=== PATIENT | female | born 1935 | race Caucasian/White ===

== ENCOUNTER 2017-03-18 12:04 | Outpatient (CLI) | payer BC | END 2017-03-18 12:05 | disposition critical access hospital (66) | LOC: EMS 12:04 | PROVIDERS: ATTEND Surgery | DX: R07.9 Chest pain, unspecified (principal) | CPT/HCPCS: A0425; A0429 ==

== ENCOUNTER 2017-03-18 12:26 | Inpatient (IN) | payer MEDICARE, BC ==
--- NOTE | 2017-03-18 12:41 | ED Physician Documentation ---
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 It lasted minutes to hours at a time and was associated with nausea and dry heaves as well as sweats. She vacillates when I ask her if she's been short of breath, and eventually says only because of the nausea and dry heaves. She denies pedal edema. She has no history of heart issues, had a negative stress test that was 20 years ago. She does have a history of chronic iron deficiency anemia and prior workups demonstrated gallstones, ventral hernia, retroperitoneal adenopathy, and a pancreatic lesion for which he failed to followup. En route her EKG was notable for sinus tachycardia with lateral ST depression and ST elevation in aVR. She is pain- free now after taking aspirin prior to arrival.) Review of Systems Ten Systems: 10 systems reviewed and negative Constitutional: reports: Fever (ffor years), Fatigue, Sweats Ears: denies: Drainage/discharge Nose: denies: Rhinorrhea / runny nose, Congestion Cardiac: denies: Palpitations, Pedal edema, Calf pain Respiratory: denies: Cough, Hemoptysis, Wheezing GI: denies: Abdominal Swelling, Diarrhea PD PAST MEDICAL HISTORY - Past Medical History Cardiovascular: Hypertension Respiratory: None Neuro: None Endocrine/Autoimmune: Type 2 diabetes, HyPOthyroidism GI: GERD : None Psych: None Musculoskeletal: None - Past Surgical History Past Surgical History: Yes 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 Derm: Skin cancer surgery - Present Medications Home Medications: Ambulatory Orders Medication Instructions Recorded Confirmed Multivitamin [Multi-Vitamin Daily] 1 tab PO DAILY 04/03/13 07/24/16 [place]-3 Fatty Acids/Fish Oil 1 cap PO DAILY 04/03/13 07/24/16 [[place] 3 1,000 mg Softgel] metFORMIN [Glucophage] 1,000 mg PO BIDWM 04/03/13 03/18/17 Aspirin 325 mg PO DAILY 07/25/16 07/25/16 Ferrous Sulfate 325 mg PO DAILY 07/25/16 07/25/16 Omeprazole 20 mg PO DAILY 07/25/16 07/25/16 Simvastatin 20 mg PO QPM 07/25/16 03/18/17 Levothyroxine Sodium 125 mcg PO DAILY 03/18/17 03/18/17 [Levothyroxine Sodium] - Allergies Allergies/Adverse Reactions: Allergies Allergy/AdvReac Type Severity Reaction Status Date / Time Penicillins AdvReac Intermediate Rash Verified 07/24/16 22:31 - Living Situation Living Situation: reports: Other (with daughter) Living Arrangement: reports: At home - Social History Does the pt smoke?: No Smoking Status: Former smoker (quit in 1984) Does the pt drink ETOH?: No Does the pt have substance abuse?: No - Family History Family history: reports: Non contributory - Immunizations Immunizations are current?: No Immunizations: TDAP >10years/unknown - POLST Patient has POLST: No PD ED PE NORMAL - Vitals Vital signs reviewed: Yes - General General: Alert and oriented X 3, No acute distress - HEENT HEENT: PERRL, EOMI - Neck Neck: Supple, no meningeal sign, No bony TTP - Cardiac Cardiac: No murmur, Other (rapid, regular) - Respiratory Respiratory: No respiratory distress, Clear bilaterally - Abdomen Abdomen: Soft, Non tender - Rectal Rectal: Other (dark brown, v guaiac positive, QC pass) - Back Back: No CVA TTP, No spinal TTP - Derm Derm: Normal color, Warm and dry - Extremities Extremities: Other (mild pitting pedal edema) - Neuro Neuro: Alert and oriented X 3, Normal speech - Psych Psych: Normal mood, Normal affect Results - Vitals Vitals: Vital Signs - 24 hr 03/18/17 03/18/17 03/18/17 12:27 12:58 13:03 Temperature 37.5 C Heart Rate 118 H 109 H 96 Respiratory 18 Rate Blood Pressure 125/64 120/62 120/71 O2 Saturation 97 97 97 03/18/17 03/18/17 03/18/17 13:10 13:25 13:33 Temperature Heart Rate 88 86 91 Respiratory 23 22 Rate Blood Pressure 90/43 L 86/48 L 91/46 L O2 Saturation 97 100 97 03/18/17 03/18/17 03/18/17 14:13 14:37 15:27 Temperature Heart Rate 95 95 102 H Respiratory 20 28 H 23 Rate Blood Pressure 100/45 L 102/45 L 98/54 L O2 Saturation 99 100 Oxygen O2 Source Room air - EKG (time done) 1238 Rate: Rate (enter#) (115) Rhythm: Sinus tachycardia (with PVC) [place]: Normal Intervals: Normal FL QRS: Normal Ischemia: Other (Lateral ST depression and KARTHIK in AVR which was present 03/17/13 (last EKG), but is much more pronounced now.) Computer interpretation: Agree with computer - Labs Labs: Laboratory Tests 03/18/17 03/18/17 03/18/17 12:57 12:57 12:57 WBC 13.1 H RBC 2.01 L Hgb 5.8 L* Hct 18.7 L* MCV 93.3 MCH 28.8 MCHC 30.9 L RDW 17.4 H Plt Count Neut # Not Reportable Lymph # Not Reportable [place] # Not Reportable Eos # Not Reportable Baso # Not Reportable Absolute Nucleated RBC Not Reportable Total Counted 100 Band Neuts % (Manual) 1 Metamyelocytes % 1 H Neutrophils # (Manual) 5.9 Lymphocytes # (Manual) 2.9 Monocytes # (Manual) 4.1 H Eosinophils # (Manual) 0.1 Nucleated RBCs Not Reportable Differential Comment MANUAL DIFFERENTIAL Platelet Morphology RARE GIANT PLATELETS RBC Morph Micro Appear 1+ HYPOCHROMASIA PT INR APTT Sodium 136 Potassium 4.1 Chloride 104 Carbon Dioxide 21 Anion Gap 11.0 BUN 23 H Creatinine 1.1 H Estimated GFR (MDRD) 48 L Glucose 121 H Calcium 8.4 L Total Bilirubin 0.8 AST 13 ALT < 10 L Alkaline Phosphatase 67 Total Creatine Kinase 82 CK-MB (CK-2) 10.0 H Troponin I 1.15 H* Total Protein 6.6 L Albumin 3.6 Globulin 3.0 Albumin/Globulin Ratio 1.2 Lipase 21 L Blood Type Antibody Screen Crossmatch IS Only 03/18/17 03/18/17 12:57 14:10 WBC RBC Hgb Hct MCV MCH MCHC RDW Plt Count Neut # Lymph # [place] # Eos # Baso # Absolute Nucleated RBC Total Counted Band Neuts % (Manual) Metamyelocytes % Neutrophils # (Manual) Lymphocytes # (Manual) Monocytes # (Manual) Eosinophils # (Manual) Nucleated RBCs Differential Comment Platelet Morphology RBC Morph Micro Appear PT 12.9 H INR 1.1 APTT 25.9 Sodium Potassium Chloride Carbon Dioxide Anion Gap BUN Creatinine Estimated GFR (MDRD) Glucose Calcium Total Bilirubin AST ALT Alkaline Phosphatase Total Creatine Kinase CK-MB (CK-2) Troponin I Total Protein Albumin Globulin Albumin/Globulin Ratio Lipase Blood Type A POSITIVE Antibody Screen NEGATIVE Crossmatch IS Only See Detail - Rads (name of study) 1v chest Radiology: EMP read contemporaneously (NAD) 1v chest (post line) Radiology: EMP read contemporaneously (R IJ cath in R atrium, will be pulled back 2cm by RN) Ct A/P Radiology: EMP read contemporaneously (Diverticulosis, stable mesenteric mass and lymphadenopathy, stable left adrenal nodule, marie cystic abnormalities of the pancreas, gallstones, right lower lobe nodule and small liver nodule.) Procedures - General procedure General procedure: She was difficult for IV access and needed a second IV, I personally placed a deep 22-gauge IV in the left deep brachial vein using real-time ultrasound guidance for crossmatched draw. - Central Line Central Line Preparation: Consent Obtained (written), Time out completed, Ultrasound used, Sterile prep and drape Central line location: Right IJ Central line type: Triple lumen Central line aftercare: Chlorhexidine disc placed, Secured, Placement confirmed , No pneumothorax, No complications, Bundle checklist complete, Pt tolerated well PD MEDICAL DECISION MAKING - ED course ED course: 81-year-old woman presents with intermittent chest pain for a week it is somewhat atypical and an ischemic EKG, but pain-free on arrival. She was found to be profoundly anemic, this is an acute on chronic anemia, and she is guaiac positive. She was administered a small dose of Lopressor IV for tachycardia, she became mildly hypotensive, around 90/60 and was given 500 of saline with improvement. She had a positive troponin. Case discussed with Dr. Travon Clarke, cardiology at [facility] by phone. She agreed this is a very complicated case because although coronary angiography might be indicated, intervention would be very difficult given the GI bleeding and lack of ability to anticoagulate her. Patient preferred to stay here for transfusions and further workup. We discussed CODE STATUS and she does want to be DO NOT RESUSCITATE if she arrests. I discussed the case with Dr. Parra, hospitalist here who did feel a little hesitant to accept her here, but I had a long discussion with the patient and she understands the pros and cons of transferring she would like to stay here at least for transfusion and to follow her troponins, potentially for endoscopies. She was difficult for IV access and her peripheral IVs all infiltrated place a right IJ central line. - Critical Care Time(min): 55 Time Includes: Direct patient care, Review records, Reassess patient, Document care, Coordinate care, Medical consult Procedures included in critical care time: Peripheral IV Procedures excluded from critical care time: Central IV, EKG Departure - Departure Disposition: 66 [facility] DC/Xfer Clinical Impression: Unstable angina, Acute blood loss anemia GI bleeding Qualifiers: GI bleed type/associated pathology: unspecified gastrointestinal hemorrhage type Qualified Code(s): K92.2 - Gastrointestinal hemorrhage, unspecified Condition: Critical
[2017-03-18] MEDS ORDERED: METOPROLOL 5 MG/5 ML VIAL IVP STA (12:45)
[2017-03-18] MEDS ORDERED: METOPROLOL 5 MG/5 ML VIAL IVP ONE (12:52)
[2017-03-18 13:20] LABS: BASOPHILS % (AUTO) 1.3 %; EOSINOPHILS % (AUTO) 0.4 %; LYMPHOCYTES % (AUTO) 14.5 %; MEAN CORPUSCULAR HEMOGLOBIN 28.8 pg (27.0-31.0); MEAN CORPUSCULAR HGB CONC 30.9 g/dL (32.0-36.0); MEAN CORPUSCULAR VOLUME 93.3 fL (81.0-99.0); MONOCYTES % (AUTO) 33.7 %; NEUTROPHILS % (AUTO) 50.1 %; RED BLOOD COUNT 2.01 10^6/uL (4.20-5.40); RED CELL DISTRIBUTION WIDTH 17.4 % (12.0-15.0); UNCORRECTED WHITE BLOOD COUNT 13.1 x10^3/uL; WHITE BLOOD COUNT 13.1 x10^3/uL (4.8-10.8)
[2017-03-18 13:22] LABS: ALBUMIN/GLOBULIN RATIO 1.2 (1.0-2.2); BILIRUBIN,TOTAL 0.8 mg/dL (0.2-1.0); BUN - BLOOD UREA NITROGEN 23 mg/dL (6-20); CALCIUM 8.4 mg/dL (8.5-10.3); CARBON DIOXIDE - CO2 21 mmol/L (21-32); CHLORIDE 104 mmol/L (101-111); CREATININE 1.1 mg/dL (0.4-1.0); GFR - MDRD 48 (>89); GLUCOSE 121 mg/dL (70-100); LIPASE 21 U/L (22-51); POTASSIUM 4.1 mmol/L (3.5-5.0); SODIUM 136 mmol/L (135-145); TOTAL PROTEIN 6.6 g/dL (6.7-8.2)
[2017-03-18] MEDS ORDERED: SODIUM CHLORIDE 0.9% 500 ML IV ONE ×2 (13:26→15:34)
--- NOTE | 2017-03-18 13:26 | XRAY Preliminary Report ---
Exam: XR Chest 1 View IMPRESSION: Chronic findings. No acute disease. [facility] SITE ID: [id number]
[2017-03-18 13:29] LABS: TROPONIN I 1.15 ng/mL (<0.49)
--- NOTE | 2017-03-18 13:29 | XRAY Report ---
EXAM: CHEST RADIOGRAPHY EXAM DATE: 03/18/2017 01:17 PM. CLINICAL HISTORY: Chest pain. COMPARISON: None. TECHNIQUE: 1 view. FINDINGS: Lungs/Pleura: Mild interstitial prominence. No localized infiltrate, consolidation, effusion, or pneu mothorax. Mediastinum: Within exam limitations, cardiomediastinal contour is normal. The upper lobe vessels not distended. Other: Surgical clips in the neck. Degenerative changes. Calcific periarthritis of right shoulder. IMPRESSION: Chronic findings. No acute disease. [facility] Referring Provider Line: [phone] SITE ID: [id number]
[2017-03-18 13:33] LABS: HCT - HEMATOCRIT 18.7 % (37.0-47.0); HGB - HEMOGLOBIN 5.8 g/dL (12.0-16.0)
[2017-03-18 13:38] LABS: BAND NEUTROPHILS % (MANUAL) 1 %; EOSINOPHILS % (MANUAL) 1 %; LYMPHOCYTES % (MANUAL) 22 %; NEUTROPHILS % (MANUAL) 44 %; TOTAL CELLS COUNTED 100
[2017-03-18 13:40] LABS: NP AUTO DIFFERENTIAL? YES; NP MAN DIFFERENTIAL? NO
[2017-03-18] MEDS ORDERED: PANTOPRAZOLE 40 MG VIAL IVP STA (15:20)
[2017-03-18] MEDS ORDERED: PANTOPRAZOLE 40 MG VIAL ONE (15:25)
[2017-03-18] MEDS ORDERED: ZOLPIDEM 5 MG TABLET PO PRN (15:34)
[2017-03-18] MEDS ORDERED: ONDANSETRON 4 MG/2 ML VIAL IVP PRN (15:34)
[2017-03-18] MEDS ORDERED: oxyCODONE 5 MG TABLET PO PRN ×2 (15:34)
[2017-03-18] MEDS ORDERED: NITROGLYCERIN SL 0.4 MG TABLET SL PRN (15:34)
[2017-03-18] MEDS ORDERED: PROCHLORPERAZINE 10 MG/2 ML VIAL IVP PRN (15:34)
[2017-03-18] MEDS ORDERED: ACETAMINOPHEN 325 MG TABLET PO PRN (15:34)
[2017-03-18 15:40] LABS: INR 1.1 (0.8-1.2); PT - PROTHROMBIN TIME 12.9 secs (9.9-12.6)
[2017-03-18 15:47] LABS: PARTIAL THROMBOPLASTIN TIME 25.9 secs (24.9-33.3)
--- NOTE | 2017-03-18 15:47 | XRAY Preliminary Report ---
Exam: XR Chest for Line Placement IMPRESSION: 1. New right internal jugular line with tip in the proximal right atrium. This can be pulled back 2 c m. 2. Atherosclerosis. [facility] SITE ID: [id number]
--- NOTE | 2017-03-18 15:49 | XRAY Report ---
EXAM: CHEST RADIOGRAPHY EXAM DATE: 03/18/2017 03:34 PM. CLINICAL HISTORY: Post central line. COMPARISON: Chest x-ray 03/18/2017 at 1318. TECHNIQUE: 1 view. FINDINGS: Lungs/Pleura: No focal opacities evident. No pleural effusion. No pneumothorax. Mediastinum: Normal heart size with aortic tortuosity and atherosclerotic calcification. Other: Calcification adjacent to the bilateral greater tuberosities. Status post neck surgery. New ri ght internal jugular line with tip in the proximal right atrium. IMPRESSION: 1. New right internal jugular line with tip in the proximal right atrium. This can be pulled back 2 c m. 2. Atherosclerosis. [facility] Referring Provider Line: [phone] SITE ID: [id number]
--- NOTE | 2017-03-18 16:51 | CT Report ---
EXAM: CT ABDOMEN AND PELVIS EXAM DATE: 03/18/2017 04:19 PM. CLINICAL HISTORY: GI bleeding. Previous pancreas mass. COMPARISONS: 07/25/2016. TECHNIQUE: Routine helical CT imaging was performed through the abdomen and pelvis. IV contrast: 100 cc of Isovue-300. Enteric contrast: No. Reconstructions: Coronal and sagittal. In accordance with CT protocol optimization, one or more of the following dose reduction techniques w ere utilized for this exam: automated exposure control, adjustment of mA and/or KV based on patient s ize, or use of iterative reconstructive technique. FINDINGS: Lung Bases: 6 mm right lower lobe nodule noted. Liver: Indeterminant 8mm low density, central right lobe. Gallbladder/Bile Ducts: Multiple gallstones. No ductal dilatation. Spleen: Normal. Pancreas: Stable septated cystic abnormality in the pancreatic head 1.8 cm across, 11 mm cystic abnor mality at junction of head and body, and 11 mm cystic low density mid body. Adrenal Glands: Stable 16 x 21 mm left adrenal nodule. Normal right adrenal. Kidneys: Normal. No masses or hydronephrosis. Peritoneal Cavity/Bowel: Stable periaortic lymph nodes, 1.5 cm across to the right, 1.4 cm across to the left. Stable mesenteric mass with internal calcification, 1.5 x 1.8 by 3.0 cm. No free fluid or f ree air. No masses or acute inflammatory process. Nonvisualized appendix. Pelvic Organs: Hysterectomy. Bladder unremarkable. Vasculature: No aortic aneurysm. Advanced atherosclerotic calcification and plaquing of the aortoilia c vessels and of the celiac artery and SMA. Bones: No significant abnormality. Other: None. IMPRESSION: 1. Mild diverticulosis without diverticulitis or other acute bowel abnormality. 2. 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 3. Stable left adrenal nodule. 4. Stable cystic abnormalities of the pancreas. 5. Gallstones. 6. Right lower lobe 6 mm nodule, not seen on prior exams. 7. Indeterminate 8 mm low-density, central right lobe of the liver, not seen on prior exams. [facility] Referring Provider Line: [phone] SITE ID: [id number]
[2017-03-18 16:58] LABS: CA 125 4.1 U/mL (0.0-35.0)
[2017-03-18 16:59] LABS: IRON 7 ug/dL (28-170); TOTAL IRON BINDING CAPACITY 382 ug/dL (250-450); TRANSFERRIN 273 mg/dL (192-382)
[2017-03-18 17:06] LABS: FERRITIN 11.3 ng/mL (11.0-306.8)
[2017-03-18] MEDS ORDERED: IOPAMIDOL-300 100 ML VIAL IVP ONE (17:46)
--- NOTE | 2017-03-18 19:04 | HISTORY & PHYSICAL EXAMINATION ---
Chief Complaint - Chief Complaint Chief Complaint: chest pain History of Present Illness - Admitted From Admitted From:: emergency department - History Obtained From Records Reviewed: yes History obtained from: patient Exam Limitations: none - History of Present Illness HPI Comment/Other: Patient is a very pleasant 81-year-old female with a past medical history significant for diabetes, hypertension, hypothyroidism, history of ischemic bowel with colon resection and recent finding of mesenteric mass for which patient has not followed up due to feeling well who presented to the emergency department with a chief complaint of chest pain. The patient states that she has been having off-and-on chest pain for the past several weeks. She states that the pain is substernal radiates up into the left side of her chest and then up into the left side of her neck. She states the pain is so bad that she cannot sleep at night. She states that the pain goes away spontaneously and then returned spontaneously she cannot identify any alleviating factors. She states that there is no relationship with exertion and pain. She does also state that she has associated nausea and has had dry heaves the nausea has become worse over the last several days. She admits to generalized weakness and decreased appetite she states that she's lost about 70 pounds over the last several years. She denies any dark stools she denies any bloody stool she denies any abdominal pain. She finally decided to come into the emergency department today when her daughter told her to come in as her chest pain was persistent throughout this morning. The patient otherwise denies any fevers or chills she denies any cough. On presentation to the emergency department the patient was initially afebrile she was tachycardic and vital signs were otherwise stable. The patient appeared very pale and her EKG revealed ST elevations in lead [address] depressions in leads V4 through V6. The emergency room physician contacted the head girls golf coach sole conforming machine operator at [facility] who stated in the setting of the patient having severe anemia which was found on her CBC with hemoglobin of 5.8 and white positive stools that the head girls golf coach would not intervene with any stenting, heparin or Plavix and therefore could not provide any therapy at this time. The patient's troponin was also elevated at 1.15. Given the patient' s cardiac condition and severe anemia it was recommended to her that she would be better served at a larger [facility] with specialty care. The patient however refused to be transferred and asked to be treated here to the best of our abilities knowing the fact this may not be ideal for her health. Review of Systems - Constitutional Constitutional: reports: Fatigue, Weakness, Poor appetite, Weight loss. denies : Fever, Chills, Diaphoresis, Night sweats - Eyes Eyes: denies: Pain, Irritation, Amaurosis, Blurred vision, Spots in vision, Field loss, Vision loss, Dipolpia, Corrective lenses, Other - Ears, Nose & Throat Ears, Nose & Throat: denies: Ear pain, Hearing loss, Hearing aids, Tinnitus, Vertigo, Nasal pain, Nasal discharge, Nosebleeds, Nasal obstruction, Nasal congestion, Postnasal drainage, Dentures, Sore throat, Hoarseness, Mouth lesions , Bleeding gums, Dental decay, Dental pain, Other - Cardiovascular Cariovascular: reports: Chest pain, Orthopnea. denies: Irregular heart rate, Palpitations, Edema, Lightheadedness, Syncope, Exertional dyspnea, Decr. exercise tolerance - Respiratory Respiratory: reports: Orthopnea. denies: Cough, Sputum production, Wheezing, Hemoptysis, SOB at rest, SOB with exertion, Pleuritic pain - Gastrointestinal Gastrointestinal: reports: Nausea, Vomiting, Bile emesis, Poor appetite. denies : Abdominal pain, Abdominal distention, Constipation, Diarrhea, Change in bowel habits, Black stools, Bloody stools, Coffee grounds emesis - Genitourinary Genitourinary: denies: Dysuria, Frequency, Urgency, Hematuria - Musculoskeletal Musculoskeletal: denies: Muscle pain, Back pain, Muscle aches, Stiffness - Integumentary Integumentary: denies: Rash, Pruritis, Lesions - Neurological Neurological: reports: General weakness. denies: Focal weakness, Headache, Dizziness, Numbness, Abnormal gait - Psychiatric Psychiatric: denies: Depression, Anxiety - Endocrine Endocrine: denies: Polyuria, Polydypsia, Polyphagia, Intolerance to cold - Hematologic/Lymphatic Hematologic/Lymphatic: reports: Anemia. 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 She was for 13 years but is now . She lives with her daughter and [place]. She has 2 grandchildren. 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 She was a previous smoker smoked very heavily over 2 packs a day quit in 1984. She does drink wine maybe once a year and denies any illicit drug use - Substance History Use: Uses substance without health or social issues: NONE Abuse: Recurrent use of substance despite neg consequences: NONE Dependence: Experiences withdrawal or developed tolerances: NONE - POLST Patient has POLST: No POLST Status: DNR Meds/Allgy - Home Medications Home Medications: Ambulatory Orders Medication Instructions Recorded Confirmed Multivitamin [Multi-Vitamin Daily] 1 tab PO DAILY 04/03/13 07/24/16 [place]-3 Fatty Acids/Fish Oil 1 cap PO DAILY 04/03/13 07/24/16 [[place] 3 1,000 mg Softgel] metFORMIN [Glucophage] 1,000 mg PO BIDWM 04/03/13 03/18/17 Aspirin 325 mg PO DAILY 07/25/16 07/25/16 Ferrous Sulfate 325 mg PO DAILY 07/25/16 07/25/16 Omeprazole 20 mg PO DAILY 07/25/16 07/25/16 Simvastatin 20 mg PO QPM 07/25/16 03/18/17 Levothyroxine Sodium 125 mcg PO DAILY 03/18/17 03/18/17 [Levothyroxine Sodium] - Allergies Allergies/Adverse Reactions: Allergies Allergy/AdvReac Type Severity Reaction Status Date / Time Penicillins AdvReac Intermediate Rash Verified 07/24/16 22:31 Exam - Vital Signs Vital Signs: Vital Signs x48h Pulse BP Pulse Ox 03/18/17 17:45 100 105/57 L 98 03/18/17 16:30 58 L 113/58 L 98 - Physical Exam General Appearance: positive: No acute distress, Alert, Other (Very pale appearing with severely wrinkled skin) Eyes Bilateral: positive: Normal inspection, PERRL, EOMI, No lid inflammation, No scleral icterus, Other (conjunctival pallor) ENT: positive: ENT inspection nml, Pharynx nml, Dry mucous membranes. negative : Purulent nasal drainage, Pharyngeal erythema, Oral lesions Neck: positive: Nml inspection, Thyroid nml, No JVD. negative: Trachea midline , Thyromegaly, Lymphadenopathy (R), Lymphadenopathy (L) Respiratory: positive: Chest non-tender, No respiratory distress, Breath sounds nml. negative: Wheezes, Rales, Rhonchi Cardiovascular: positive: Regular rate & rhythm, No murmur, No gallop Peripheral Pulses: positive: 2+ Abdomen: positive: Non-tender, No organomegaly, Nml bowel sounds, No distention. negative: Guarding, Rebound Rectal: positive: Stool - heme POS Back: positive: Nml inspection Skin: positive: Warm, Dry, Pallor Extremities: positive: Non-tender, Full ROM, Nml appearance, Pedal edema Neurologic/Psychiatric: positive: Oriented x3, CN's nml (2-12), Motor nml, Sensation nml, Mood/affect nml Conclusion/Plan - Problem List (1) NSTEMI (non-ST elevated myocardial infarction) Conclusion/Plan: Presented with chest pain, EKG changes with ST depressions in V4-V6 and mild KARTHIK in aVR Trop elevated at 1.15 Patient not candidate for cath or other interventions as she is having GI bleeding Customer Service Professional at [facility] spoken to by ED Patient refused to be transferred and wants to be treated for GI bleed here with blood transfusion Plan: Echo Repeat Trops Hold ASA for bleeding Lipitor Lopressor Needs to follow up with Cards as outpatient tele monitoring (2) GI bleeding Conclusion/Plan: Presents with Hb of 5.8 Guiaic positive stools but no melena or bright red blood at home Iron 7 Likely bleeding slowly secondary to GI cancer given mesenteric mass on CT Plan: Transfuse 4 units PRBCs Monitor closely Iron supplement IV protonix Consult surgery who may not scope given possible cancer and NSTEMI but patient is aware of this and chooses to stay here rather than be transferred. 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 Patient needs outpatient workup Could be source of bleeding No abdominal pain Nausea for the past week with weight loss and poor appetite Needs outpatient workup MRCP done in past showed pancreatic head lesion seen again on CT but unchanged (4) Diabetes Conclusion/Plan: On oral meds at home Hold home meds Place on sliding scale insulin Qualifiers: Diabetes mellitus type: type 2 (5) Hypertension Conclusion/Plan: HOld antihypertensives given GI bleed and borderline low BP (6) Hypothyroidism Conclusion/Plan: Check TSH Continue home synthroid - Lab Results Lab results reviewed: Yes Fish Bones: 03/18/17 12:57 03/18/17 12:57 - Diagnostic Imaging Results Diagnostic Imaging Results: positive: Final report reviewed - EKG Results EKG Interpreted Independently: Yes Issues/Core Measures - Anticipated LOS Anticipated Stay Length: 2 or more midnights - DVT/VTE - Prophylaxis Not Ordered - Medical Reason: Contraindicated (Bleeding)
[2017-03-18] MEDS: PANTOPRAZOLE 40 MG VIAL IVP SCH ×2 (19:46→21:26)
[2017-03-18] MEDS ORDERED: POTASSIUM CHLORIDE 10 MEQ CAPSULE PO SCH (21:00)
[2017-03-18] MEDS ORDERED: ATORVASTATIN 10 MG TABLET PO SCH (21:00)
[2017-03-18] MEDS: METOPROLOL TARTRATE 25 MG TABLET PO SCH (21:26)
[2017-03-18] MEDS: ATORVASTATIN 40 MG TABLET PO SCH (21:26)
[2017-03-18] MEDS: SODIUM CHLORIDE FLUSH 0.9% 10 ML SYRINGE IVP SCH (21:30)
[2017-03-19] MEDS: SODIUM CHLORIDE 0.9% 1,000 ML IV SCH ×3 (01:42→12:11)
[2017-03-19 02:03] LABS: INR 1.2 (0.8-1.2); PT - PROTHROMBIN TIME 13.3 secs (9.9-12.6)
[2017-03-19 02:09] LABS: ALBUMIN/GLOBULIN RATIO 1.2 (1.0-2.2); BILIRUBIN,TOTAL 3.1 mg/dL (0.2-1.0); BUN - BLOOD UREA NITROGEN 21 mg/dL (6-20); CALCIUM 7.9 mg/dL (8.5-10.3); CARBON DIOXIDE - CO2 22 mmol/L (21-32); CHLORIDE 103 mmol/L (101-111); CHOL/HDL RATIO 2.6 (<4.4); CHOLESTEROL 110 mg/dL; GFR - MDRD 53 (>89); GLUCOSE 112 mg/dL (70-100); HDL CHOLESTEROL 42 mg/dL; LDL/HDL RATIO 1.1 (<4.4); POTASSIUM 3.9 mmol/L (3.5-5.0); SODIUM 136 mmol/L (135-145); TRIGLYCERIDES 103 mg/dL; VLDL CHOLESTEROL 21 mg/dL
[2017-03-19 02:11] LABS: EOSINOPHILS % (AUTO) 0.5 %; HCT - HEMATOCRIT 33.8 % (37.0-47.0); HGB - HEMOGLOBIN 11.3 g/dL (12.0-16.0); LYMPHOCYTES % (AUTO) 12.7 %; MEAN CORPUSCULAR HEMOGLOBIN 29.4 pg (27.0-31.0); MEAN CORPUSCULAR HGB CONC 33.4 g/dL (32.0-36.0); MEAN CORPUSCULAR VOLUME 87.9 fL (81.0-99.0); MEAN PLATELET VOLUME 11.5 fL (7.9-10.8); MONOCYTES % (AUTO) 40.3 %; NEUTROPHILS % (AUTO) 45.5 %; RED BLOOD COUNT 3.84 10^6/uL (4.20-5.40); RED CELL DISTRIBUTION WIDTH 16.9 % (12.0-15.0); UNCORRECTED WHITE BLOOD COUNT 14.4 x10^3/uL; WHITE BLOOD COUNT 14.4 x10^3/uL (4.8-10.8)
[2017-03-19 02:36] LABS: HEMOGLOBIN A1C 0.4 g/dL
[2017-03-19 02:54] LABS: BAND NEUTROPHILS % (MANUAL) 2 %; EOSINOPHILS % (MANUAL) 1 %; LYMPHOCYTES % (MANUAL) 16 %; NEUTROPHILS % (MANUAL) 44 %; TOTAL CELLS COUNTED 100
[2017-03-19 02:55] LABS: NP AUTO DIFFERENTIAL? YES; NP MAN DIFFERENTIAL? NO
[2017-03-19] MEDS: LEVOTHYROXINE 125 MCG TABLET PO SCH (06:17)
[2017-03-19] MEDS: SODIUM CHLORIDE FLUSH 0.9% 10 ML SYRINGE IVP SCH ×3 (06:17→20:57)
[2017-03-19] MEDS ORDERED: LEVOTHYROXINE 100 MCG TABLET PO SCH (07:00)
[2017-03-19] MEDS: INSULIN ASPART 300 UNIT/3 ML PEN SUBQ SCH ×4 (08:29→20:56)
[2017-03-19] MEDS: MULTIVITAMIN TABLET PO SCH (08:30)
[2017-03-19] MEDS: OMEGA-3 ACID ETHYL ESTERS 1 GM CAPSULE PO SCH (08:30)
[2017-03-19] MEDS: FERROUS SULFATE 325 MG TABLET PO SCH (08:31)
[2017-03-19] MEDS: METOPROLOL TARTRATE 25 MG TABLET PO SCH ×2 (08:31→20:56)
[2017-03-19] MEDS: PANTOPRAZOLE 40 MG VIAL IVP SCH ×2 (09:35→20:56)
[2017-03-19] MEDS: POLYETHYLENE GLYCOL 3350 17 GM PACKET PO SCH (09:36)
[2017-03-19 11:17] LABS: BASOPHILS % (AUTO) 0.7 %; EOSINOPHILS % (AUTO) 0.5 %; HCT - HEMATOCRIT 32.5 % (37.0-47.0); HGB - HEMOGLOBIN 11.1 g/dL (12.0-16.0); MEAN CORPUSCULAR HEMOGLOBIN 29.8 pg (27.0-31.0); MEAN CORPUSCULAR HGB CONC 34.2 g/dL (32.0-36.0); MEAN CORPUSCULAR VOLUME 87.2 fL (81.0-99.0); MONOCYTES % (AUTO) 41.5 %; NEUTROPHILS % (AUTO) 42.3 %; RED BLOOD COUNT 3.73 10^6/uL (4.20-5.40); RED CELL DISTRIBUTION WIDTH 17.1 % (12.0-15.0); UNCORRECTED WHITE BLOOD COUNT 13.3 x10^3/uL; WHITE BLOOD COUNT 13.3 x10^3/uL (4.8-10.8)
[2017-03-19 11:35] LABS: BAND NEUTROPHILS % (MANUAL) 3 %; LYMPHOCYTES % (MANUAL) 15 %; NEUTROPHILS % (MANUAL) 43 %; TOTAL CELLS COUNTED 100
[2017-03-19 11:36] LABS: PLATELET ESTIMATE, MANUAL NORMAL (130-450,000) (NORMAL); PLATELET MORPHOLOGY 1+ LARGE PLATELETS (NORMAL)
[2017-03-19 11:37] LABS: NP AUTO DIFFERENTIAL? YES; NP MAN DIFFERENTIAL? NO
[2017-03-19 17:12] LABS: BASOPHILS % (AUTO) 0.5 %; EOSINOPHILS % (AUTO) 0.6 %; HCT - HEMATOCRIT 34.4 % (37.0-47.0); HGB - HEMOGLOBIN 11.6 g/dL (12.0-16.0); LYMPHOCYTES % (AUTO) 12.6 %; MEAN CORPUSCULAR HEMOGLOBIN 29.2 pg (27.0-31.0); MEAN CORPUSCULAR HGB CONC 33.7 g/dL (32.0-36.0); MEAN CORPUSCULAR VOLUME 86.6 fL (81.0-99.0); MEAN PLATELET VOLUME 11.8 fL (7.9-10.8); MONOCYTES % (AUTO) 43.4 %; NEUTROPHILS % (AUTO) 42.9 %; RED BLOOD COUNT 3.98 10^6/uL (4.20-5.40); RED CELL DISTRIBUTION WIDTH 17.3 % (12.0-15.0); UNCORRECTED WHITE BLOOD COUNT 15.1 x10^3/uL; WHITE BLOOD COUNT 15.1 x10^3/uL (4.8-10.8)
[2017-03-19] MEDS: SODIUM CHLORIDE FLUSH 0.9% 10 ML SYRINGE IVP PRN (17:13)
[2017-03-19 17:14] LABS: BAND NEUTROPHILS % (MANUAL) 0 %
[2017-03-19 17:37] LABS: BASOPHILS % (MANUAL) 2 %; LYMPHOCYTES % (MANUAL) 11 %; NEUTROPHILS % (MANUAL) 43 %; NP AUTO DIFFERENTIAL? YES; NP MAN DIFFERENTIAL? NO; PLATELET ESTIMATE, MANUAL NORMAL (130-450,000) (NORMAL); PLATELET MORPHOLOGY 1+ GIANT PLATELETS (NORMAL); TOTAL CELLS COUNTED 100
[2017-03-19] MEDS: ATORVASTATIN 40 MG TABLET PO SCH (20:56)
[2017-03-19 23:32] LABS: BASOPHILS % (AUTO) 0.5 %; EOSINOPHILS % (AUTO) 0.6 %; HCT - HEMATOCRIT 32.1 % (37.0-47.0); HGB - HEMOGLOBIN 10.8 g/dL (12.0-16.0); LYMPHOCYTES % (AUTO) 18.3 %; MEAN CORPUSCULAR HEMOGLOBIN 29.4 pg (27.0-31.0); MEAN CORPUSCULAR HGB CONC 33.7 g/dL (32.0-36.0); MEAN CORPUSCULAR VOLUME 87.4 fL (81.0-99.0); MEAN PLATELET VOLUME 11.4 fL (7.9-10.8); MONOCYTES % (AUTO) 41.8 %; NEUTROPHILS % (AUTO) 38.8 %; RED BLOOD COUNT 3.68 10^6/uL (4.20-5.40); RED CELL DISTRIBUTION WIDTH 17.2 % (12.0-15.0); UNCORRECTED WHITE BLOOD COUNT 13.9 x10^3/uL; WHITE BLOOD COUNT 13.9 x10^3/uL (4.8-10.8)
[2017-03-19 23:35] LABS: BAND NEUTROPHILS % (MANUAL) 0 %
[2017-03-20 00:28] LABS: EOSINOPHILS % (MANUAL) 1 %; LYMPHOCYTES % (MANUAL) 21 %; NEUTROPHILS % (MANUAL) 51 %; NP AUTO DIFFERENTIAL? YES; NP MAN DIFFERENTIAL? NO; PLATELET ESTIMATE, MANUAL NORMAL (130-450,000) (NORMAL); TOTAL CELLS COUNTED 100
[2017-03-20 03:44] LABS: BASOPHILS % (AUTO) 0.7 %; EOSINOPHILS % (AUTO) 0.8 %; HCT - HEMATOCRIT 30.8 % (37.0-47.0); HGB - HEMOGLOBIN 10.3 g/dL (12.0-16.0); LYMPHOCYTES % (AUTO) 15.4 %; MEAN CORPUSCULAR HEMOGLOBIN 29.3 pg (27.0-31.0); MEAN CORPUSCULAR HGB CONC 33.5 g/dL (32.0-36.0); MEAN CORPUSCULAR VOLUME 87.5 fL (81.0-99.0); MEAN PLATELET VOLUME 11.5 fL (7.9-10.8); MONOCYTES % (AUTO) 42.6 %; NEUTROPHILS % (AUTO) 40.5 %; RED BLOOD COUNT 3.53 10^6/uL (4.20-5.40); RED CELL DISTRIBUTION WIDTH 17.2 % (12.0-15.0); UNCORRECTED WHITE BLOOD COUNT 12.7 x10^3/uL; WHITE BLOOD COUNT 12.7 x10^3/uL (4.8-10.8)
[2017-03-20 03:51] LABS: BAND NEUTROPHILS % (MANUAL) 0 %
[2017-03-20 03:52] LABS: ALBUMIN/GLOBULIN RATIO 1.1 (1.0-2.2); BILIRUBIN,TOTAL 1.4 mg/dL (0.2-1.0); BUN - BLOOD UREA NITROGEN 15 mg/dL (6-20); CALCIUM 7.8 mg/dL (8.5-10.3); CARBON DIOXIDE - CO2 22 mmol/L (21-32); CHLORIDE 107 mmol/L (101-111); CREATININE 0.8 mg/dL (0.4-1.0); GFR - MDRD 69 (>89); GLUCOSE 113 mg/dL (70-100); POTASSIUM 3.4 mmol/L (3.5-5.0); SODIUM 138 mmol/L (135-145); TOTAL PROTEIN 5.6 g/dL (6.7-8.2)
[2017-03-20 04:28] LABS: LYMPHOCYTES % (MANUAL) 38 %; NEUTROPHILS % (MANUAL) 44 %; NP AUTO DIFFERENTIAL? YES; NP MAN DIFFERENTIAL? NO; PLATELET ESTIMATE, MANUAL DECREASED (<130,000) (NORMAL); TOTAL CELLS COUNTED 100
[2017-03-20] MEDS: LEVOTHYROXINE 125 MCG TABLET PO SCH (06:11)
[2017-03-20] MEDS: SODIUM CHLORIDE FLUSH 0.9% 10 ML SYRINGE IVP SCH (06:11)
[2017-03-20] MEDS: SODIUM CHLORIDE 0.9% 1,000 ML IV SCH (07:58)
[2017-03-20] MEDS ORDERED: POTASSIUM CHLORIDE 20 MEQ TABLET PO ONE (08:00)
[2017-03-20] MEDS: OMEGA-3 ACID ETHYL ESTERS 1 GM CAPSULE PO SCH (08:48)
[2017-03-20] MEDS: FERROUS SULFATE 325 MG TABLET PO SCH (08:49)
[2017-03-20] MEDS: METOPROLOL TARTRATE 25 MG TABLET PO SCH (08:50)
[2017-03-20] MEDS: MULTIVITAMIN TABLET PO SCH (08:50)
[2017-03-20] MEDS: INSULIN ASPART 300 UNIT/3 ML PEN SUBQ SCH (08:50)
[2017-03-20] MEDS: PANTOPRAZOLE 40 MG VIAL IVP SCH (08:51)
[2017-03-20] MEDS: SODIUM CHLORIDE FLUSH 0.9% 10 ML SYRINGE IVP PRN (08:51)
[2017-03-20] MEDS: POLYETHYLENE GLYCOL 3350 17 GM PACKET PO SCH (09:02)
[2017-03-20 12:06] VITALS: BP 103/63
--- NOTE | 2017-03-20 12:42 | PROVIDER PROGRESS NOTE ---
Assessment/Plan - Problem List (1) NSTEMI (non-ST elevated myocardial infarction) Assessment/Plan: Presented with chest pain, EKG changes with ST depressions in V4-V6 and mild KARTHIK in aVR Trop elevated at 1.15 Patient not candidate for cath or other interventions as she is having GI bleeding Sealer Operator at [facility] spoken to by ED Patient refused to be transferred and wants to be treated for GI bleed here with blood transfusion Holding ASA and heparin for bleeding Started Lopressor and lipitor Echo shows regional wall motion abnormalities and decreased EF 40% Add lisinopril if she can tolerate for CHF Patient needs cardiac evaluation once GI bleeding has resolved (2) GI bleeding Conclusion/Plan: Presents with Hb of 5.8 Guiaic positive stools but no melena or bright red blood at home Iron 7 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 Patient needs outpatient workup Could be source of bleeding No abdominal pain Nausea for the past week with weight loss and poor appetite Needs outpatient workup MRCP done in past showed pancreatic head lesion seen again on CT but unchanged (4) Diabetes Conclusion/Plan: On oral meds at home Hold home meds Placed on sliding scale insulin BS stable Qualifiers: Diabetes mellitus type: type 2 (5) Hypertension Conclusion/Plan: BP low normal Started on lopressor will start lisinopril if patient tolerates (6) Hypothyroidism Conclusion/Plan: TSH normal Continue home synthroid - Current Meds Current Meds: Current Medications Generic Name Dose Route Start Last Admin Trade Name Freq PRN Reason Stop Dose Admin Atorvastatin Calcium 80 mg 03/18/17 21:00 03/19/17 20:56 Lipitor PO 80 mg QPM CONCEPCIÓN Administration Ferrous Sulfate 325 mg 06/15/17 09:00 03/20/17 08:49 Feosol PO 325 mg DAILY CONCEPCIÓN Administration Sodium Chloride 1,000 mls @ 100 mls/hr 03/18/17 16:00 03/20/17 07:58 Normal Saline 0.9% IV Not Given .Q10H CONCEPCIÓN Insulin Aspart 1 - 5 unit 03/19/17 08:00 03/20/17 08:50 Novolog SUBQ Not Given 0800,1200,1700,2100 [facility] Protocol Levothyroxine Sodium 125 mcg 03/19/17 07:00 03/20/17 06:11 Synthroid PO 125 mcg QDAC CONCEPCIÓN Administration Metoprolol Tartrate 25 mg 03/18/17 21:00 03/20/17 08:50 Lopressor PO 25 mg BID CONCEPCIÓN Administration Multivitamins 1 tab 03/19/17 08:00 03/20/17 08:50 Theragran PO 1 tab DAILYWM CONCEPCIÓN Administration Vedty-6-Kbhh Ethyl Esters 1 gm 03/19/17 09:00 03/20/17 08:48 Lovaza PO 1 gm DAILY CONCEPCIÓN Administration Pantoprazole Sodium 40 mg 03/18/17 16:00 03/20/17 08:51 Protonix IVP 40 mg BID CONCEPCIÓN Administration Polyethylene Glycol 17 gm 03/19/17 09:00 03/20/17 09:02 Miralax PO Not Given DAILY CONCEPCIÓN Sodium Chloride 10 ml 03/18/17 15:34 03/20/17 08:51 Normal Saline Flush 0.9% IVP 20 ml PRN PRN Administration NEEDED PER PROVIDER ORDERS Sodium Chloride 10 ml 03/18/17 22:00 03/20/17 06:11 Normal Saline Flush 0.9% IVP 10 ml Q8HR CONCEPCIÓN Administration - Lab Result Lab results reviewed: Yes Fish Bone Diagrams: 03/20/17 03:20 03/20/17 03:20 - EKG Results EKG Interpreted Independently: Yes - Diagnostic Imaging Results Diagnostic Imaging Results: positive: Final report reviewed - Additional Planning Condition/Complexity: Guarded Consult/Specialty: Surgery Plan Discussed with:: Patient Time Spent: 31-60 minutes Subjective - Subjective Patient Reports: Feeling Better (Patient states she feels much better after blood. She states she is still weak but strength is improved. She states that she no longer has any chest pain. She denies any shortness of breath or lower extremity swelling.) Nursing Reports: No Complaints Objective Vital Signs: Vital Signs - 24 hr 03/19/17 03/19/17 03/19/17 13:00 14:00 15:00 Temperature Heart Rate [ 84 80 88 Monitoring electrodes] Respiratory 28 H 30 H 21 Rate Blood Pressure Blood Pressure 107/55 L 100/61 109/52 L [Right Brachial artery] O2 Saturation 94 97 94 03/19/17 03/19/17 03/19/17 16:00 17:00 18:00 Temperature Heart Rate [ 89 90 125 H Monitoring electrodes] Respiratory 25 H 19 24 Rate Blood Pressure Blood Pressure 99/50 L 129/58 L 97/70 [Right Brachial artery] O2 Saturation 100 97 97 03/19/17 03/19/17 03/19/17 18:59 20:00 20:56 Temperature 36.6 C Heart Rate [ 92 96 Monitoring electrodes] Respiratory 30 H 22 Rate Blood Pressure 120/61 Blood Pressure 109/66 112/59 L [Right Brachial artery] O2 Saturation 97 03/19/17 03/19/17 03/19/17 21:00 22:10 23:10 Temperature Heart Rate [ 90 80 80 Monitoring electrodes] Respiratory 20 28 H 18 Rate Blood Pressure Blood Pressure 129/60 105/56 L 96/47 L [Right Brachial artery] O2 Saturation 99 93 97 03/20/17 03/20/17 03/20/17 00:00 01:00 02:00 Temperature Heart Rate [ 80 78 88 Monitoring electrodes] Respiratory 17 20 23 Rate Blood Pressure Blood Pressure 100/56 L 96/58 L 134/74 H [Right Brachial artery] O2 Saturation 97 97 97 03/20/17 03/20/17 03/20/17 03:00 04:00 05:00 Temperature Heart Rate [ 82 83 84 Monitoring electrodes] Respiratory 19 18 22 Rate Blood Pressure Blood Pressure 100/57 L 102/56 L 100/55 L [Right Brachial artery] O2 Saturation 94 94 96 03/20/17 03/20/17 03/20/17 06:00 07:00 08:00 Temperature Heart Rate [ 114 H 84 81 Monitoring electrodes] Respiratory 18 17 Rate Blood Pressure Blood Pressure 113/76 99/55 L 91/44 L [Right Brachial artery] O2 Saturation 97 98 95 03/20/17 03/20/17 03/20/17 08:36 08:50 09:00 Temperature 36.3 C L Heart Rate [ 91 Monitoring electrodes] Respiratory 21 Rate Blood Pressure 110/66 Blood Pressure 110/66 [Right Brachial artery] O2 Saturation 99 03/20/17 03/20/17 03/20/17 10:00 11:00 12:00 Temperature 36.3 C L Heart Rate [ 88 76 85 Monitoring electrodes] Respiratory 22 23 25 H Rate Blood Pressure Blood Pressure 105/57 L 105/53 L 103/63 [Right Brachial artery] O2 Saturation 100 100 98 Oxygen O2 Source Room air I&O (Last 24 Hrs): Intake and Output Totals x24h 03/18/17 03/19/17 03/20/17 23:59 23:59 23:59 Intake Total 1400 4650 480 Output Total 615 410 9165 Balance 900 3950 -620 General: Alert, Oriented x3, Cooperative, No acute distress, Other (cachectic looking, a lot of wrinkles) HEENT: Atraumatic, PERRLA, EOMI, Mucous membr. moist/pink Neck: Supple, No JVD, No thyromegaly, +2 carotid pulse wo bruit, No LAD Lymphatic: no adenopathy Neuro: Alert, Non Focal, CN 2-12 Grossly Intact, Oriented Times 3 Cardiovascular: Regular rate, Normal S1, Normal S2, No murmurs Respiratory: Chest non-tender, No respiratory distress, Breath sounds nml Abdomen: Normal bowel sounds, Soft, No tenderness, No hepatospenomegaly, No masses Extremities: No clubbing, No cyanosis, No edema, Normal pulses Skin: No rashes, No breakdown, No significant lesion - Results Results: Laboratory Results WBC 12.7 x10^3/uL (4.8-10.8) H 03/20/17 03:20 RBC 3.53 10^6/uL (4.20-5.40) L 03/20/17 03:20 Hgb 10.3 g/dL (12.0-16.0) L 03/20/17 03:20 Hct 30.8 % (37.0-47.0) L 03/20/17 03:20 MCV 87.5 fL (81.0-99.0) 03/20/17 03:20 MCH 29.3 pg (27.0-31.0) 03/20/17 03:20 MCHC 33.5 g/dL (32.0-36.0) 03/20/17 03:20 RDW 17.2 % (12.0-15.0) H 03/20/17 03:20 Plt Count 123 10^3/uL (130-450) L 03/20/17 03:20 MPV 11.5 fL (7.9-10.8) H 03/20/17 03:20 Neut # Not Reportable 03/20/17 03:20 Lymph # Not Reportable 03/20/17 03:20 Ford # Not Reportable 03/20/17 03:20 Eos # Not Reportable 03/20/17 03:20 Baso # Not Reportable 03/20/17 03:20 Absolute Nucleated RBC Not Reportable 03/20/17 03:20 Total Counted 100 03/20/17 03:20 Band Neuts % (Manual) 0 % (0-10) 03/20/17 03:20 Reactive Lymphs % (Man) 5 % 03/19/17 17:07 Metamyelocytes % 1 % (-0) H 03/18/17 12:57 Myelocytes % 1 % (-0) H 03/19/17 01:35 Neutrophils # (Manual) 5.6 10^3/uL (1.5-6.6) 03/20/17 03:20 Lymphocytes # (Manual) 4.8 10^3/uL (1.5-3.5) H 03/20/17 03:20 Monocytes # (Manual) 2.3 10^3/uL (0.0-1.0) H 03/20/17 03:20 Eosinophils # (Manual) 0.1 10^3/uL (0-0.7) 03/19/17 23:00 Basophils # (Manual) 0.3 10^3/uL (0-0.1) H 03/19/17 17:07 Nucleated RBCs 1 % 03/20/17 03:20 Differential Comment MANUAL DIFFERENTIAL 03/20/17 03:20 Platelet Estimate DECREASED (<130,000) (NORMAL) 03/20/17 03:20 Platelet Morphology 1+ LARGE PLATELETS (NORMAL) 03/19/17 10:55 Platelet Morphology 1+ GIANT PLATELETS (NORMAL) 03/19/17 17:07 RBC Morph Micro Appear NORMAL APPEARANCE (NORMAL) 03/19/17 23:00 RBC Morph Micro Appear NORMAL APPEARANCE (NORMAL) 03/20/17 03:20 PT 13.3 secs (9.9-12.6) H 03/19/17 01:35 INR 1.2 (0.8-1.2) 03/19/17 01:35 APTT 25.9 secs (24.9-33.3) 03/18/17 12:57 Sodium 138 mmol/L (135-145) 03/20/17 03:20 Potassium 3.4 mmol/L (3.5-5.0) L 03/20/17 03:20 Chloride 107 mmol/L (101-111) 03/20/17 03:20 Carbon Dioxide 22 mmol/L (21-32) 03/20/17 03:20 Anion Gap 9.0 (6-13) 03/20/17 03:20 BUN 15 mg/dL (6-20) 03/20/17 03:20 Creatinine 0.8 mg/dL (0.4-1.0) 03/20/17 03:20 Estimated GFR (MDRD) 69 (>89) L 03/20/17 03:20 Glucose 113 mg/dL (70-100) H 03/20/17 03:20 POC Whole Bld Glucose 151 mg/dL (70 - 100) H 03/20/17 11:56 Glycated Hemoglobin 5.3 % (4.6-6.2) 03/19/17 01:35 Estim Average Glucose 105 (70-100) H 03/19/17 01:35 Calcium 7.8 mg/dL (8.5-10.3) L 03/20/17 03:20 Iron 7 ug/dL (28-170) L 03/18/17 16:20 TIBC 382 ug/dL (250-450) 03/18/17 16:20 % Saturation 2 % (20-50) L 03/18/17 16:20 Transferrin 273 mg/dL (192-382) 03/18/17 16:20 Ferritin 11.3 ng/mL (11.0-306.8) 03/18/17 16:20 Total Bilirubin 1.4 mg/dL (0.2-1.0) H 03/20/17 03:20 AST 10 IU/L (10-42) 03/20/17 03:20 ALT < 10 IU/L (10-60) L 03/20/17 03:20 Alkaline Phosphatase 60 IU/L (42-121) 03/20/17 03:20 Total Creatine Kinase 82 IU/L (22-269) 03/18/17 12:57 CK-MB (CK-2) 10.0 ng/mL (0.6-6.3) H 03/18/17 12:57 Troponin I 1.23 ng/mL (<0.49) H* 03/19/17 08:10 Total Protein 5.6 g/dL (6.7-8.2) L 03/20/17 03:20 Albumin 2.9 g/dL (3.2-5.5) L 03/20/17 03:20 Globulin 2.7 g/dL (2.1-4.2) 03/20/17 03:20 Albumin/Globulin Ratio 1.1 (1.0-2.2) 03/20/17 03:20 Triglycerides 103 mg/dL (-149) 03/19/17 01:35 Cholesterol 110 mg/dL (-199) 03/19/17 01:35 LDL Cholesterol, Calc 47 mg/dL (-129) 03/19/17 01:35 VLDL Cholesterol 21 mg/dL 03/19/17 01:35 HDL Cholesterol 42 mg/dL (60-) L 03/19/17 01:35 LDL/HDL Ratio 1.1 (<4.4) 03/19/17 01:35 Cholesterol/HDL Ratio 2.6 (<4.4) 03/19/17 01:35 Lipase 21 U/L (22-51) L 03/18/17 12:57 Carcinoembryonic Ag 1.1 ng/mL 03/18/17 16:20 CA 19-9 Antigen 9 U/mL (<34) 03/18/17 16:20 CA 125 Antigen 4.1 U/mL (0.0-35.0) 03/18/17 16:20 Vitamin B12 690 pg/mL (180-914) 03/18/17 16:20 Folate 44.00 ng/mL (5.90 - >24.8) 03/18/17 16:20 TSH 6.58 uIU/mL (0.34-5.60) H 03/19/17 01:35 Blood Type A POSITIVE 03/18/17 14:10 Antibody Screen NEGATIVE 03/18/17 14:10 Crossmatch IS Only See Detail 03/18/17 14:10 - Procedures Procedures: Procedures ABD WALL NELDA REPAIR NEC (04/04/13) OTHER OPEN UMBILICAL HERNIORRHAPHY (04/04/13) PACKED CELL TRANSFUSION (04/04/13) PART SM BOWEL RESECT NEC (04/04/13) SM-TO-SM BOWEL ANASTOM (04/04/13)
[2017-03-20] MEDS ORDERED: LISINOPRIL 5 MG TABLET PO SCH (13:00)
--- NOTE | 2017-03-20 13:50 | DISCHARGE SUMMARY ---
DATE OF ADMISSION: 03/18/2017 DATE OF TRANSFER: 03/20/2017 PRIMARY CARE PHYSICIAN: Justin Hernandez MD DISCHARGING PHYSICIAN: Mike Parra MD ORIGIN OF DISCHARGE: [facility]. ACCEPTING PHYSICIAN: Gunnar Frost MD, hospitalist at [facility]. DISCHARGE DIAGNOSES 1. Non-ST elevation myocardial infarction. 2. Gastrointestinal bleed. 3. Systolic heart failure. 4. Mesenteric mass. 5. Diabetes. 6. Hypertension. 7. Hypothyroidism. DISCHARGE MEDICATIONS 1. Lipitor 80 mg p.o. q.p.m. 2. Ferrous sulfate 325 mg p.o. daily. 3. Tylenol 650 mg p.o. q.4h. p.r.n. for pain. 4. Synthroid 125 mcg p.o. daily. 5. Lopressor 25 mg p.o. b.i.d. 6. Multivitamin 1 tablet p.o. daily. 7. Nitroglycerin 0.4 mg sublingual q.5 minutes p.r.n. for chest pain. 8. Dolphin 3 fatty acid 1 gram p.o. daily. 9. Zofran 4 mg IV q.4h. p.r.n. for pain. 10. Oxycodone 5 mg p.o. q.4h. p.r.n. for pain. 11. Oxycodone 10 mg p.o. q.4h. p.r.n. for pain. 12. Protonix 40 mg IV b.i.d. 13. MiraLax 17 grams p.o. daily. 14. Compazine 10 mg IV q.6h. p.r.n. for nausea. 15. Normal saline 0.9% 100 mL/hr. 16. Ambien 5 mg p.o. q.p.m. p.r.n. for insomnia. HOME MEDICATIONS 1. Levothyroxine 125 mcg p.o. daily. 2. Metformin 1000 mg p.o. b.i.d. with meals. 3. Simvastatin 20 mg p.o. q.p.m. 4. Omeprazole 20 mg p.o. daily. HOSPITAL COURSE: This patient is a very pleasant 81-year-old female with a past medical history signi ficant for diabetes, hypertension, hypothyroidism, and history of ischemic bowel with colon resection , who had been found to have a mesenteric mass for which she failed to follow up and presented to the emergency department on 03/18/2017 with a chief complaint of chest pain. The patient stated that she was having the chest pain off and on for several weeks. The patient stated that the pain was subster nal, radiating to the left chest and up into the neck. The patient states that the pain was so bad sh e could not sleep at night. She stated that the pain would come on spontaneously and she could not gi ve me any aggravating or alleviating factors. The patient stated the pain was associated with nausea and dry heaves and had become increasingly more severe the last several days, so she finally decided to come in to the emergency department. On presentation to the emergency department, the patient was afebrile, she was tachycardic. Otherwise , vital signs were stable. She did appear very pale and her EKG revealed severe ST depressions in shilpa ds V4 through V6 and some mild ST elevations in leads II and aVR. The patient was also found to have a hemoglobin of 5.8. The superintendent water and sewer systems from [facility] was called from the emergency department and he stated that in the setting of severe anemia and likely GI bleed, that she would no t be a candidate for acute intervention or heparin or Plavix. He asked that the patient's GI bleed be treated and then she can be evaluated by cardiology at a later point. The patient's troponin was fou nd to be elevated at 1.15, and peaked at 1.45. The patient was admitted to the ICU for blood transfusion. She was given 4 units of packed RBCs durin g the hospitalization. The patient's hemoglobin improved up to 11.6 and was trending down to 10.3 at the time of discharge. The patient was found to have severe iron deficiency with an iron level of 7. We consulted General Surgery to see if the patient could get an EGD and colonoscopy. The general surg rebeca stated that the patient needed to be first cleared by Cardiology to get scoped, as the patient infante s just had an NSTEMI. Therefore, he was not willing to do the scope and asked that we transfer the pa tient to a larger center. The patient's echocardiogram did show a reduced EF of 40% and showed wall motion abnormalities. The p atient was placed on IV Protonix from the presentation. The patient was placed on Lopressor p.o. as w elana as Lipitor p.o., we did hold off on aspirin as she was having a gastrointestinal bleed. The patie nt also had lisinopril added to her regimen prior to discharge. The patient initially had refused to go to [facility], but then after she was able to talk to her daughter she accepted the transfer. We powers [facility] and I spoke with Dr. Gunnar Frost, who was kind enough to accept the patient in transfer for evaluation by Cardiology and Gastroenterology. The patient was stable at the time of discharge, she did not have any active bleeding nor did she have any gross melena prior to discharge. PHYSICAL EXAMINATION AT DISCHARGE VITAL SIGNS: Temperature 36.3, heart rate 85, blood pressure 103/63, respiratory rate 25, O2 saturati on 98% on room air. GENERAL: Patient is a very elderly appearing female who is quite cachectic, but is alert and able to answer all my questions. She is not in any acute distress. HEENT: Pupils are equal and reactive to light. Extraocular muscles are intact. Mucous membranes are m oist. There is no conjunctival pallor or scleral icterus noted. NECK: Supple. No thyromegaly. No JVD. Trachea is midline. LYMPH NODES: There is no cervical or axillary lymphadenopathy noted. CARDIOVASCULAR: S1, S2, regular rate and rhythm. No murmurs, rubs, or gallops. LUNGS: Clear to auscultation bilaterally. No wheezes, rhonchi, or crackles. ABDOMEN: Soft, nontender, nondistended. Bowel sounds are present in all 4 quadrants. EXTREMITIES: There is no lower extremity edema. Peripheral pulses are palpable. There is no cyanosis or clubbing. SKIN: No skin rashes, lesions, cellulitis, or abscesses. NEUROLOGIC: The patient is alert, oriented x3. Cranial nerves 2 through 12 are grossly intact. Streng th is grossly normal. Sensations are intact. LABORATORY: At discharge, WBC is 12.7, hemoglobin 10.3, hematocrit 30.8, platelet count 123. Sodium 1 38, potassium 3.4, chloride 107, carbon dioxide 22, BUN 15, creatinine 0.8, glucose 113, calcium 7.8. Total bilirubin 1.4, AST 10, ALT less than 10, alkaline phosphatase 60, total protein 5.6, albumin 2 .9. Troponin 1.23, peaked at 1.45. IMAGING Chest x-ray. Impression: Chronic findings, no acute disease. CT abdomen/pelvis. Impression: 1. Mild diverticulosis without diverticulitis or other acute bowel abnormality. 2. Stable central mesenteric mass with internal calcification and stable mild periaortic lymphadenop athy. 3. Stable left adrenal nodule. 4. Stable cystic abnormalities of the pancreas. 5. Gallstones. 6. Right lower lobe 6 mm nodule, not seen on prior exam. 7. Indeterminate 8 mm low density central right lobe of the liver, not seen on prior exams. Chest x-ray 03/18/2017. Impression: New right internal jugular line with tip in the proximal right at rium. This can be pulled back 2 cm to atherosclerosis. EKG. Impression: 1. Deep ST depressions in V4, V5, and V6. 2. Mild ST depressions in V2 and V1. 3. Mild ST elevations in aVR and lead I. Echocardiogram: 1. Mild concentric left ventricular hypertrophy. 2. Overall left ventricular systolic function is mildly to moderately impaired, with an ejection fra ction of 40% to 45%. There is inferior and inferolateral hypokinesis. 3. The right ventricle is normal in size and function. 4. The right ventricle systolic function is mildly impaired. 5. There is moderate mitral regurgitation. 6. Mild to moderate tricuspid regurgitation. 7. Mildly abnormal right heart pressures. 8. Right ventricular systolic pressure at rest is 41 mmHg. 9. 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 FOLLOWUP/RECOMMENDATIONS: The patient is being transferred to [facility] for furthe r treatment. She presented here with NSTEMI and a hemoglobin of 5.8, with a likely GI bleed. We do no t have cardiology service or GI service here. Our surgeons did not want to scope this patient without patient first being evaluated by Cardiology. The patient was given 4 units of packed RBCs and treate d with IV Protonix. The patient's hemoglobin was stable at greater than 10 by the time of transfer. T he patient was also started on Lopressor, lisinopril, and Lipitor while she was hospitalized. We did not start her on aspirin, Plavix, or heparin, as she was having a GI bleed. Patient did have positive stool guaiac, but did not have any large melenic or bright red blood in her stools. The patient was transferred in stable condition. TIME SPENT ON DISCHARGE: Greater than 30 minutes was spent on discharge. JOB #: [id number] EXT JOB #:[id number]
== END 2017-03-20 12:24 | disposition short-term general hospital (02) | DRG 281 ==
LOC: EDUNIT# → ED 12:26 → ICU 15:34
PROVIDERS: ADMIT Internal Medicine; ATTEND Internal Medicine
DX: I20.0 Unstable angina (principal); D62 Acute posthemorrhagic anemia; I21.4 Non-ST elevation (NSTEMI) myocardial infarction; D50.9 Iron deficiency anemia, unspecified; I10 Essential (primary) hypertension; K92.2 Gastrointestinal hemorrhage, unspecified; I50.20 Unspecified systolic (congestive) heart failure; D50.0 Iron deficiency anemia secondary to blood loss (chronic); R19.09 Other intra-abdominal and pelvic swelling, mass and lump; I11.0 Hypertensive heart disease with heart failure; E11.9 Type 2 diabetes mellitus without complications; E03.9 Hypothyroidism, unspecified; K21.9 Gastro-esophageal reflux disease without esophagitis; Z66 Do not resuscitate; Z79.84 Long term (current) use of oral hypoglycemic drugs; Z90.49 Acquired absence of other specified parts of digestive tract; Z85.828 Personal history of other malignant neoplasm of skin; Z87.891 Personal history of nicotine dependence; Z79.82 Long term (current) use of aspirin
CPT/HCPCS: 36415; 36430; 36556; 36569; 71010; 74177; 80053; 80061; 82378; 82550; 82553; 82607; 82728; 82746; 83036; 83540; 83690; 84443; 84466; 84484; 85025; 85610; 85730; 86301; 86304; 86850; 86900; 86901; 86920; 87150; 93005; 93010; 93306; 96361; 96374; 96375; 99285; 99291

== ENCOUNTER 2017-03-20 12:26 | Outpatient (CLI) | payer BC, MEDICARE | END 2017-03-20 23:59 | disposition short-term general hospital (02) | LOC: EMS 12:26 | PROVIDERS: ATTEND Surgery | DX: I21.4 Non-ST elevation (NSTEMI) myocardial infarction (principal); K92.2 Gastrointestinal hemorrhage, unspecified | CPT/HCPCS: A0425; A0426 ==

== ENCOUNTER 2017-04-22 02:04 | Outpatient (CLI) | payer BC, MEDICARE | END 2017-04-22 02:05 | disposition short-term general hospital (02) | LOC: EMS 02:04 | PROVIDERS: ATTEND Surgery | DX: R07.9 Chest pain, unspecified (principal); R42 Dizziness and giddiness | CPT/HCPCS: A0425; A0427 ==

== ENCOUNTER 2017-05-16 13:10 | Outpatient (CLI) | payer BC, MEDICARE | END 2017-05-16 13:11 | disposition short-term general hospital (02) | LOC: EMS 13:10 | PROVIDERS: ATTEND Surgery | DX: R11.0 Nausea (principal); R07.9 Chest pain, unspecified | CPT/HCPCS: A0425; A0427 ==

== ENCOUNTER 2017-06-08 09:09 | Outpatient (CLI) | payer BC | END 2017-06-08 09:10 | disposition critical access hospital (66) | LOC: EMS 09:09 | PROVIDERS: ATTEND Surgery | DX: R10.12 Left upper quadrant pain (principal) | CPT/HCPCS: A0425; A0429 ==

== ENCOUNTER 2017-06-08 09:27 | Emergency (ER) | payer BC ==
[2017-06-08] MEDS ORDERED: ONDANSETRON 4 MG/2 ML VIAL IVP STA ×2 (09:44→16:27)
[2017-06-08] MEDS ORDERED: HYDROmorphone 1 MG/ML SYRINGE IVP STA (09:44)
--- NOTE | 2017-06-08 09:48 | ED Physician Documentation ---
PD HPI ABD PAIN - Stated complaint Stated Complaint: LLQ PX - Chief complaint Chief Complaint: Abd Pain - History obtained from History obtained from: Patient - Additional information Additional information: Patient is 81-year-old female who lives at home. Her daughter to helps take care of her. She has a history of coronary disease diabetes dyslipidemia and in 1959 she had what sounds like a hemicolectomy for what she describes as necrotic bowel. More recently she has had problems with lower gastrointestinal bleeding and had endoscopy and colonoscopy both at [facility] and [facility] this year. 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 There has not been any biopsy taken and the patient is reticent to undergo surgery, biopsies, chemo or radiation therapy at the present time. She says she is old and just wants to be comfortable and was doing fine until she had the onset of left lower quadrant abdominal pain and nausea starting this morning. She does take iron but has not noticed any obvious bloody stools. Review of systems: For pertinent positive and negatives in the review of systems please see the history of present illness, otherwise all other systems have been reviewed and are negative. Dragon disclaimer: Parts of this medical record were created using voice recognition technology. Because of the inherent limitations of this system, occasional same sounding word substitutions do occur and persist despite proofreading. Please read the document for context. 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 Derm: Skin cancer surgery - Present Medications Home Medications: Ambulatory Orders Medication Instructions Recorded Confirmed Multivitamin [Multi-Vitamin Daily] 1 tab PO DAILY 04/03/13 07/24/16 [place]-3 Fatty Acids/Fish Oil 1 cap PO DAILY 04/03/13 07/24/16 [[place] 3 1,000 mg Softgel] metFORMIN [Glucophage] 1,000 mg PO BIDWM 04/03/13 03/18/17 Aspirin 325 mg PO DAILY 07/25/16 07/25/16 Ferrous Sulfate 325 mg PO DAILY 07/25/16 07/25/16 Omeprazole 20 mg PO DAILY 07/25/16 07/25/16 Simvastatin 20 mg PO QPM 07/25/16 03/18/17 Levothyroxine Sodium 125 mcg PO DAILY 03/18/17 03/18/17 [Levothyroxine Sodium] HYDROcod/ACETAM 5/325 [[place] 5/325] 1 - 2 ea PO Q6H PRN #20 tablet 06/08/17 Ondansetron Odt [Zofran] 4 mg TL Q6H PRN #14 tablet 06/08/17 - Allergies Allergies/Adverse Reactions: Allergies Allergy/AdvReac Type Severity Reaction Status Date / Time Penicillins AdvReac Intermediate Rash Verified 07/24/16 22:31 - Social History Does the pt smoke?: No Smoking Status: Never smoker Does the pt drink ETOH?: No Does the pt have substance abuse?: No - Immunizations Immunizations are current?: No Immunizations: TDAP >10years/unknown - POLST Patient has POLST: No POLST Status: DNR PD ED PE NORMAL - Vitals Vital signs reviewed: Yes - General General: Alert and oriented X 3, No acute distress, Well developed/nourished, Other (Ill-appearing pleasant elderly female no apparent distress she does appear pale on examination.) - HEENT HEENT: Atraumatic, PERRL - Neck Neck: Supple, no meningeal sign, No bony TTP, No JVD, No bruit, Other - Cardiac Cardiac: RRR, No murmur, No gallop, No rub - Respiratory Respiratory: No respiratory distress, Clear bilaterally - Abdomen Abdomen: Normal bowel sounds, Soft, Non tender, Non distended - Derm Derm: Normal color, Warm and dry, No rash, Other - Extremities Extremities: No deformity, No tenderness to palpate, Normal ROM s pain - Neuro Neuro: Alert and oriented X 3 Results - Vitals Vitals: Vital Signs - 24 hr 06/08/17 06/08/17 06/08/17 09:30 10:33 11:00 Temperature 36.6 C 36.2 C L Heart Rate 97 94 96 Respiratory 14 15 18 Rate Blood Pressure 129/93 H 159/67 H 140/63 H O2 Saturation 99 99 97 06/08/17 06/08/17 06/08/17 12:04 13:09 13:30 Temperature 36.5 C 36.3 C L Heart Rate 90 86 95 Respiratory 14 18 18 Rate Blood Pressure 155/76 H 147/67 H 146/102 H O2 Saturation 99 100 100 06/08/17 06/08/17 06/08/17 13:31 13:48 14:38 Temperature 36.2 C L Heart Rate 92 89 Respiratory 18 16 Rate Blood Pressure 146/68 H 156/70 H 161/77 H O2 Saturation 97 97 06/08/17 06/08/17 15:50 16:08 Temperature 36.1 C L 36.4 C L Heart Rate 90 88 Respiratory 15 15 Rate Blood Pressure 158/71 H 159/73 H O2 Saturation 98 99 Oxygen O2 Source Room air - Labs Labs: Laboratory Tests 06/08/17 06/08/17 06/08/17 10:00 10:00 10:00 WBC 12.5 H RBC 2.78 L Hgb 8.1 L Hct 25.4 L MCV 91.1 MCH 29.1 MCHC 31.9 L RDW 19.9 H Plt Count 198 MPV 11.3 H Neut # 6.6 Lymph # 0.8 L [place] # 5.1 H Eos # 0.0 Baso # 0.0 Absolute Nucleated RBC 0.07 Band Neuts % (Manual) Not Reportable Nucleated RBCs 0.5 Differential Comment MANUAL=AUTO DIFF Platelet Estimate NORMAL (130-450,000) Platelet Morphology NORMAL APPEARANCE RBC Morph Micro Appear 1+ HYPOCHROMASIA Sodium 134 L Potassium 4.0 Chloride 99 L Carbon Dioxide 24 Anion Gap 11.0 BUN 14 Creatinine 0.8 Estimated GFR (MDRD) 69 L Glucose 197 H Calcium 8.7 Total Bilirubin 1.2 H AST 25 ALT 26 Alkaline Phosphatase 336 H Total Protein 6.8 Albumin 3.7 Globulin 3.1 Albumin/Globulin Ratio 1.2 Lipase 24 Blood Type A POSITIVE Antibody Screen NEGATIVE Crossmatch IS Only 06/08/17 10:00 WBC RBC Hgb Hct MCV MCH MCHC RDW Plt Count MPV Neut # Lymph # [place] # Eos # Baso # Absolute Nucleated RBC Band Neuts % (Manual) Nucleated RBCs Differential Comment Platelet Estimate Platelet Morphology RBC Morph Micro Appear Sodium Potassium Chloride Carbon Dioxide Anion Gap BUN Creatinine Estimated GFR (MDRD) Glucose Calcium Total Bilirubin AST ALT Alkaline Phosphatase Total Protein Albumin Globulin Albumin/Globulin Ratio Lipase Blood Type Cancelled Antibody Screen Cancelled Crossmatch IS Only See Detail PD MEDICAL DECISION MAKING - ED course Complexity details: reviewed old records, reviewed results, re-evaluated patient , d/w patient, d/w family ED course: Patient 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 She presents with the onset of left lower quadrant pain and nausea this morning. She was recently admitted at [facility] last month and sent to [facility] where she refused additional therapy. She was or did receive endoscopy, colonoscopy, and capsule endoscopy at [facility]. Records from [facility] were obtained. She was sent to [facility] for double balloon endoscopy which she refused. At that point in time she is made a decision to avoid biopsies, chemotherapy, radiation therapy or any type of invasive treatment. The patient has been more or less symptom-free until the onset of left lower quadrant abdominal pain today. On examination she is pale but well-appearing female in no apparent distress she appears comfortable. She has mild left lower quadrant tenderness on examination and was guaiac positive on exam. She is given IV fluids pain and nausea medications x-ray of her abdomen shows nonobstructive bowel gas pattern. Her hemoglobin is 8 she is given 1 unit of blood which she has received many times at [facility]. At this time the patient is comfortable and since she does not want any further treatment done other than those focusing on comfort and quality of life we will discharge her home with pain and nausea medications. I will attempt to get a hold of her physician Dr. Hernandez to see if a hospice consult can be made. Disposition to home Clinical impression: 1. Anemia secondary to blood loss 2. 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 Patient is chosen comfort measures and wants to avoid radiation, chemotherapy or any invasive treatment of her cancer.
[2017-06-08 10:11] LABS: BASOPHILS % (AUTO) 0.3 %; EOSINOPHILS % (AUTO) 0.1 %; HCT - HEMATOCRIT 25.4 % (37.0-47.0); HGB - HEMOGLOBIN 8.1 g/dL (12.0-16.0); LYMPHOCYTES # (AUTO) 0.8 10^3/uL (1.5-3.5); MEAN CORPUSCULAR HEMOGLOBIN 29.1 pg (27.0-31.0); MEAN CORPUSCULAR HGB CONC 31.9 g/dL (32.0-36.0); MEAN CORPUSCULAR VOLUME 91.1 fL (81.0-99.0); MEAN PLATELET VOLUME 11.3 fL (7.9-10.8); MONOCYTES # (AUTO) 5.1 10^3/uL (0.0-1.0); MONOCYTES % (AUTO) 40.5 %; NEUTROPHILS # (AUTO) 6.6 10^3/uL (1.5-6.6); NEUTROPHILS % (AUTO) 53.1 %; NUCLEATED RED BLOOD CELLS AUTO 0.5 /100WBC; RED BLOOD COUNT 2.78 10^6/uL (4.20-5.40); RED CELL DISTRIBUTION WIDTH 19.9 % (12.0-15.0); UNCORRECTED WHITE BLOOD COUNT 12.5 x10^3/uL; WHITE BLOOD COUNT 12.5 x10^3/uL (4.8-10.8)
[2017-06-08 10:26] LABS: ALBUMIN/GLOBULIN RATIO 1.2 (1.0-2.2); BILIRUBIN,TOTAL 1.2 mg/dL (0.2-1.0); CALCIUM 8.7 mg/dL (8.5-10.3); CREATININE 0.8 mg/dL (0.4-1.0); TOTAL PROTEIN 6.8 g/dL (6.7-8.2)
[2017-06-08 10:45] LABS: PLATELET ESTIMATE, MANUAL NORMAL (130-450,000) (NORMAL); PLATELET MORPHOLOGY NORMAL APPEARANCE (NORMAL)
[2017-06-08 10:46] LABS: NP AUTO DIFFERENTIAL? NO; NP MAN DIFFERENTIAL? YES
--- NOTE | 2017-06-08 10:49 | XRAY Preliminary Report ---
Exam: XR Abdomen 1 View IMPRESSION: No excess colonic fecal content or other abnormality noted. [facility] SITE ID: [id number]
--- NOTE | 2017-06-08 10:51 | XRAY Report ---
EXAM: ABDOMEN RADIOGRAPHY, PORTABLE ONE VIEW EXAM DATE: 06/08/2017 10:21 AM. CLINICAL HISTORY: Constipation in an 81-year-old female. COMPARISON: Contrast-enhanced abdomen and pelvic CT 03/18/2017. TECHNIQUE: Single AP supine portable view performed at 1021 hrs. FINDINGS: Bowel Gas Pattern: Within normal limits. No dilated loops. No excess colonic fecal content. Other: Right pelvic surgical clip again noted. No organomegaly, mass or abnormal calcification. Mild to moderate levoconvex lower thoracic and upper lumbar scoliosis, as previously with multilevel degenerative disk disease through the lower thoracic and lumbar spine. No acute osseous abnormality. IMPRESSION: No excess colonic fecal content or other abnormality noted. [facility] Referring Provider Line: [phone] SITE ID: [id number]
[2017-06-08] MEDS ORDERED: HYDROmorphone 1 MG/ML SYRINGE ONE (10:56)
[2017-06-08] MEDS ORDERED: ONDANSETRON 4 MG/2 ML VIAL ONE ×2 (10:56→16:37)
[2017-06-08] MEDS ORDERED: SODIUM CHLORIDE FLUSH 0.9% 10 ML SYRINGE IVP ONE (10:58)
[2017-06-08 16:09] VITALS: BP 159/73
== END 2017-06-08 17:06 | disposition home or self-care (01) ==
LOC: EDUNIT# → ED 09:27
DX: D50.0 Iron deficiency anemia secondary to blood loss (chronic) (principal); R22.2 Localized swelling, mass and lump, trunk; C80.1 Malignant (primary) neoplasm, unspecified; C78.00 Secondary malignant neoplasm of unspecified lung; I25.10 Atherosclerotic heart disease of native coronary artery without angina pectoris; I10 Essential (primary) hypertension; E11.9 Type 2 diabetes mellitus without complications; Z79.84 Long term (current) use of oral hypoglycemic drugs; Z79.82 Long term (current) use of aspirin
CPT/HCPCS: 36415; 36430; 74000; 80053; 83690; 85025; 86850; 86900; 86901; 86920; 96374; 96375; 96376; 99284; J1170; P9016

== ENCOUNTER 2017-06-09 11:30 | Outpatient (CLI) | payer BC ==
--- NOTE | 2017-06-09 18:40 | CONSULTATION NOTE ---
Palliative Care Consultation - Referral Referring Provider: Dr. Justin Hernandez Time of Visit: 11:30-12:45 Referral setting: Home (Patient is seen in her home setting, it is a considerable and taxing effort for her to leave the home secondary to weakness/ high symptom burden) Referral Reason: Mesenteric Mass - Information Sources Records Reviewed: Old records reviewed History obtained from: Patient Exam limitations: Clinical condition (patient with little insight into her condition and decisions and consequences at this point in time) - History of Present Illness Brief History of Present Illness: This is an 81 year old woman who has had a series of hospitalizations with somewhat ill defined diagnosis/serious illness including she had presented this March with a NSTEMI, received 4 units of blood that admission, at [facility], then was transferred to [facility] where she had cardiology support, and had a EGD which was normal, and a colonoscopy that showed a pedunculated polyp that was not removed at that time. On discharge she had a CT scan of abdomen on 04/22 that showed multiple masses in the liver, left adrenal gland, pancreas, and possibly spleen with retroperitonial lymphadenopathy with a recommendatin for further MRI. It is noted on an admit in 07/2016 on imaging she had pancreatic lesions and adenopathy, and recommended work up on discharge, she had been acutely admitted with gastroenteritis. She herself, has not been able to provide a clear sequential story of her health, she does understand she has a mass (mesenteric) that would need to be biopsied to give more information, but in her decision making has not wanted to pursue because she doesn't want chemotherapy or anything that is going to make her sick, she just wants to be kept comfortable. This has been complicated in that she has had another admit to [facility], she had called the ambulance because she was nauseaous and on her admit 05/[address] angiogram of the chest showed mulitiple pulmonary nodules consistent with metastases. At this time she underwent another EGD without findings, and a colonoscopy with 4 colon polpys removed that were tubular adenomas and esophagus bx negative for malignancy. Then yesterday she had nausea and vomiting and called 911 was seen in the ED there, abdominal xray was taken for "constipation" though she complained that she had diarrhea, she received another unit of blood for her anemia, and because she was "insistent" on comfort measures no further work up done and sent home. Complicating the picture is she has had episodes of chest pain, though also reports this as GERD , and recurrent anemia attributed most likely to bleeding in the small bowel from ill defined mass. On meeting her today, she is still acutely nauseous, having "GERD" symptoms, and despite wanting "comfort measures" is ambivalent about transitioning to hospice. Medical/Surgical History - Past Medical History Cardiovascular: reports: Congestive heart failure, Hypertension, High cholesterol, [place] Respiratory: reports: None Neuro: reports: None Endocrine/Autoimmune: reports: Type 2 diabetes, HyPOthyroidism GI: reports: GERD, GI bleed, Hiatal hernia (recently seen on endoscopy; small), Other (ischemic colitis with bowel resection) : reports: None HEENT: reports: Chronic vision loss, Chronic hearing loss Psych: reports: None Musculoskeletal: reports: Osteoarthritis, Fatigue MRSA Hx?: No - Past Surgical History General: reports: Appendectomy, Colonoscopy, EGD, Other (incarcerated small bowel/ventral hernia repair) /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 Derm: reports: Skin cancer surgery (melanoma) - Substance History Use: Uses substance without health or social issues: NONE Tobacco Details: Cigarettes (history of smoking) Social History - Living Situation Living arrangement: At home (lives in a small apartment) Living Situation: With family (with her disabled daughter Yolis who is 56;) Support System: Patient with both limited financial and social resources Family History - Family History Family History: Mother: , Cancer, Father: , [place] Family History Comment/Other: Reports significant history of strokes/cardiac on father's side; colon cancer in mother at age 40 per her report, but pancreatic in recent record; for whom she cared for in her dying process. Son lung cancer Medications/Allergies - Medications Home Medications: Ambulatory Orders Medication Instructions Recorded Confirmed metFORMIN [Glucophage] 1,000 mg PO BIDWM 04/03/13 06/10/17 Omeprazole 20 mg PO BID 07/25/16 06/10/17 Simvastatin 20 mg PO QPM 07/25/16 06/10/17 Levothyroxine Sodium 125 mcg PO DAILY 03/18/17 06/10/17 [Levothyroxine Sodium] Ondansetron Odt [Zofran] 4 mg TL Q6H PRN #14 tablet 06/08/17 06/10/17 Nitroglycerin [Nitrostat] 0.4 mg SL PRN PRN 06/10/17 06/10/17 - Allergies Allergies/Adverse Reactions: Allergies Allergy/AdvReac Type Severity Reaction Status Date / Time Penicillins AdvReac Intermediate Rash Verified 07/24/16 22:31 Review of Systems - Constitutional Constitutional: reports: Fatigue, Poor appetite, Weight loss (patient reports baseline weight about 2 years ago as 170-180; most recent 126 pounds; unable to quantify in last 6 months but at least 25) - Eyes Eyes: reports: Vision loss, Corrective lenses - Ears, Nose & Throat Ears, Nose & Throat: reports: Hearing loss, Dental decay - Cardiovascular Cariovascular: reports: Irregular heart rate, Exertional dyspnea, Decr. exercise tolerance - Respiratory Respiratory: reports: SOB at rest, SOB with exertion - Gastrointestinal Gastrointestinal: reports: Black stools (taking iron supplements), Nausea, Vomiting (was discharged last evening from the ED; unable to get medications as does not drive; has been dry heaving and unable to take fluids/foods; had her take some sips while at visit; distressed felt was having n/v on discharge from ED "should have kept me for the night"), Reflux/heartburn, Bloating, Poor appetite - Genitourinary Genitourinary: reports: Incontinence - Musculoskeletal Musculoskeletal: reports: Muscle aches, Stiffness, Limited range of motion - Integumentary Integumentary: reports: Dryness - Neurological Neurological: reports: General weakness, Headache, Memory problems, Abnormal gait (shuffled with 4WW) - Psychiatric Psychiatric: reports: Anxiety (on conversation; has really not thought through "comfort measures" see PC conversation) - Endocrine Endocrine: reports: Other (hypothyroidism; hx of diabetes 1984; BS at time of visit 253) - Hematologic/Lymphatic Hematologic/Lymphatic: reports: Anemia (She received a unit of blood yesterday in the ED) - All Other Systems All Other Systems: reports: Reviewed and negative Physical Examination - Vital Signs Temperature: 97.6 C Pulse Rate: 105 Respiratory Rate: 18 O2 Saturation: 95 (RA at rest) Blood Pressure: 120/72 - Physical Exam General Appearance: positive: Mild distress (reports did not sleep last night; distress related to nausea and no medications) Eyes Bilateral: positive: Normal inspection ENT: positive: Dry mucous membranes (poor dentition) Neck: positive: No JVD, Trachea midline Respiratory: positive: Breath sounds nml Cardiovascular: positive: Tachycardia Abdomen: positive: Nml bowel sounds, Tenderness, Other (distension, not taut, rounded no masses appreciated on exam) Skin: positive: Pallor, Dryness, Bruising. negative: Jaundice Extremities: positive: Pedal edema (slight), Other (patient difficulty getting from sitting to standing; able to walk a few steps though concerned about fall risk) Neurologic/Psychiatric: positive: Oriented x3, Weakness Palliative Care - POLST Patient has POLST: Yes POLST Status: DNR, Limited Interventions Pain: Pain improved, Location (has diffuse abdominal pain; describes as intermittent; reports GERD pain, denies chest pain when asked if would use nitro for current chest discomfort), Comment (has not had any pain medication at home; has difficulty with pills-will change ED Rx to oxycodone 5 mg tabs) Drowsiness: Mild (1-3) (tired from not sleeping as well as fatigue) Nausea: Moderate (4-6), With vomiting (dry heaves through night) Anxiety: Moderate (4-6) (see PC discussion) Dyspnea: Mild (1-3) Anorexia: Mild (1-3) Insomnia: Sleeps poorly Constipation: No Feelings of wellbeing/Perceived Quality of Life: Worsening Performance Status: Patient currently weak; wants to get bath bench; ambulating with 4WW in house; previously was independent to last few months but does not drive - Palliative Care Discussion: Surrogate decision maker-has Mayra Ibrahim [phone] her granddaughter listed on form, but not notarized, she [place] [facility] [facility] [place] "but knows what is going on". Patient per her understanding has some kind of cancer, and she didn't want to do any treatment and have "all that nausea and vomiting". Discussed why she had not further gotten confirmation on disease process, or what she expected to happen from this point on. Gently explored her distress with her current nausea/pain, discussed that if no treatment whatever underlying processes she has will progress and there will be symptoms with this as well. This seemed to be new information for her to assimilate. Introduced hospice in the context she wanted "no heroics" but was not sure about that either. In looking at the future, if no treatment and no interventions will need support for dying, asked her who would take care of her. Yolis her disabled daughter is 56 and present for this conversation, is an artist, and unclear the extent of her disability but is very anxious about knowing what she would do. Daphne has not care for dying patients in her work as an RN, just her mother when she was young, knows very little about hospice. Discussed it would be a team that would come to her home to support Yolis and herself, but would not be the caregivers, and maybe would need a plan both for EOL and Yolis. When asked what was going to happen to Yolis, there is not clear plan or direction. Yolis has SS but would not be able to afford apt. on own. She has a POLST with DNAR/limited interventions but no stated goals on it. Impression and Recommendations - Palliative Care Impression: This is a 81 year old woman with many complicating factors regarding her current situation, most likely presenting with malignancy though not biopsy defined, high symptom burden, underlying cardiac issues, and recurrent anemia with most likely source of bleeding in the small bowel. 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 Recommendations/Counseling Done: 1. Nausea/vomiting, not treated. Arrangements made to obtain medications. Inst. to take as soon as received and to take ATC for at least next 24-48 hours. Hold metformin until eating and drinking at least 50% and track blood sugars. Reviewed taking small frequent sips to rehydrate. 2. Abdominal pain. Multifactorial in origin, patient vague regarding reflux pain , had been prescribed in records Protonix for hiatal hernia, not in medications. Inst. to start with omeprazole 20 mg BID for now on regular basis. Patient having difficulty with swallowing pills, LLQ pain intermittent, will order oxycodone 5 mg tabs, inst to take 1-2 every 4 hours as needed. 3. Constipation. Had taken Senna-lax with resulting in diarrhea, had stopped. Reviewed to restart 1-2 tabs if no BM in 24 hours with ondansetron and opioids constipating effect. 4. CAD. Inst. when nausea controlled to restart her metoprolol, hold the statin for now. 5. Advanced care planning. Patient somewhat ambivalent regarding current goals, wants "a week" to think about it. Reviewed the complexity of her situation, recurrent hospitalizations, and the continuum of care including hospice. Agreed will focus on symptom management and continue to explore her goals, though there is some urgency in that she does not drive and uses the ED for management of her care currently. Time Spent: 75 minutes with greater than 50% done in counseling and coordination of care to obtain medications, support and anticipatory guidance.
== END 2017-06-09 11:31 | disposition home or self-care (01) ==
LOC: PC 11:30
PROVIDERS: ATTEND Nurse Practitioner Adult Health
DX: Z51.5 Encounter for palliative care (principal); R11.2 Nausea with vomiting, unspecified; R10.32 Left lower quadrant pain; D50.0 Iron deficiency anemia secondary to blood loss (chronic); I25.2 Old myocardial infarction; K21.9 Gastro-esophageal reflux disease without esophagitis; I11.0 Hypertensive heart disease with heart failure; I50.9 Heart failure, unspecified; E11.9 Type 2 diabetes mellitus without complications; Z90.49 Acquired absence of other specified parts of digestive tract; Z85.820 Personal history of malignant melanoma of skin; Z87.891 Personal history of nicotine dependence; Z79.84 Long term (current) use of oral hypoglycemic drugs; Z91.81 History of falling; Z66 Do not resuscitate; K44.9 Diaphragmatic hernia without obstruction or gangrene; Z79.899 Other long term (current) drug therapy; I25.10 Atherosclerotic heart disease of native coronary artery without angina pectoris; R19.00 Intra-abdominal and pelvic swelling, mass and lump, unspecified site
CPT/HCPCS: 99345

== ENCOUNTER 2017-07-14 12:01 | Outpatient (CLI) | payer MEDICARE, BC | END 2017-07-14 12:02 | disposition critical access hospital (66) | LOC: EMS 12:01 | PROVIDERS: ATTEND Surgery | DX: K92.1 Melena (principal); R53.1 Weakness | CPT/HCPCS: A0425; A0429 ==

== ENCOUNTER 2017-07-14 12:18 | Emergency (ER) | payer MEDICARE, BC ==
--- NOTE | 2017-07-14 13:34 | ED Physician Documentation ---
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 She has known mesenteric mass, unknown primary with metastases which is not being treated although she is not in hospice, but has seen Mariana Troy the hospice nurse practitioner. She has ongoing bleeding from same and has been bleeding for several months which is increased over the last 2 weeks along with this weakness. There is constant anterior chest pain over the same time. She feels weak and dizzy and is mildly short of breath but no cough.) Review of Systems Ten Systems: 10 systems reviewed and negative Constitutional: reports: Fatigue. denies: Fever, Chills Nose: denies: Rhinorrhea / runny nose, Congestion Cardiac: reports: Chest pain / pressure. denies: Palpitations, Pedal edema, Calf pain Respiratory: reports: Dyspnea PD PAST MEDICAL HISTORY - Past Medical History Cardiovascular: Congestive heart failure, Hypertension, High cholesterol, [place] Respiratory: None Neuro: None Endocrine/Autoimmune: Type 2 diabetes, HyPOthyroidism GI: GERD, GI bleed, Hiatal hernia, Other : None HEENT: Chronic vision loss, Chronic hearing loss Psych: None Musculoskeletal: Osteoarthritis, Fatigue Other Past Medical History: Small bowel mass - Past Surgical History Past Surgical History: Yes General: Appendectomy, Colonoscopy, EGD, Other /[employer]: Hysterectomy Derm: Skin cancer surgery - Present Medications Home Medications: Ambulatory Orders Medication Instructions Recorded Confirmed metFORMIN [Glucophage] 1,000 mg PO BIDWM 04/03/13 06/10/17 Omeprazole 20 mg PO BID 07/25/16 07/14/17 Simvastatin 20 mg PO QPM 07/25/16 07/14/17 Levothyroxine Sodium 125 mcg PO DAILY 03/18/17 06/10/17 [Levothyroxine Sodium] Ondansetron Odt [Zofran] 4 mg TL Q6H PRN #14 tablet 06/08/17 07/14/17 Nitroglycerin [Nitrostat] 0.4 mg SL PRN PRN 06/10/17 06/10/17 - Allergies Allergies/Adverse Reactions: Allergies Allergy/AdvReac Type Severity Reaction Status Date / Time Penicillins AdvReac Intermediate Rash Verified 07/14/17 12:28 - Social History Does the pt smoke?: No Smoking Status: Never smoker Does the pt drink ETOH?: No Does the pt have substance abuse?: No - Immunizations Immunizations are current?: No Immunizations: TDAP >10years/unknown - POLST Patient has POLST: Yes POLST Status: DNR PD ED PE NORMAL - Vitals Vital signs reviewed: Yes - General General: Alert and oriented X 3, No acute distress - HEENT HEENT: PERRL, EOMI - Neck Neck: Supple, no meningeal sign, No bony TTP - Cardiac Cardiac: RRR, No murmur - Respiratory Respiratory: No respiratory distress, Clear bilaterally - Abdomen Abdomen: Soft, Non tender - Back Back: No CVA TTP, No spinal TTP - Derm Derm: Normal color, Warm and dry - Extremities Extremities: Other (trace pitting pedal edema) - Neuro Neuro: Alert and oriented X 3, Normal speech - Psych Psych: Normal mood, Normal affect Results - Vitals Vitals: Vital Signs - 24 hr 07/14/17 07/14/17 07/14/17 12:19 13:00 14:08 Temperature 36.2 C L 36.4 C L Heart Rate 73 88 80 Respiratory 16 20 12 Rate Blood Pressure 95/65 111/53 L 111/53 L O2 Saturation 95 94 07/14/17 07/14/17 15:15 16:30 Temperature Heart Rate 84 88 Respiratory 18 20 Rate Blood Pressure 97/56 L 100/44 L O2 Saturation 98 99 Oxygen O2 Source Room air - EKG (time done) 1402 Rate: Rate (enter#) (82) Rhythm: NSR [place]: Normal QRS: Low voltage Ischemia: Non specific changes Computer interpretation: Agree with computer - Labs Labs: Laboratory Tests 07/14/17 07/14/17 07/14/17 13:20 13:20 13:20 WBC 20.2 H RBC 2.61 L Hgb 7.4 L Hct 23.3 L MCV 89.2 MCH 28.4 MCHC 31.8 L RDW 19.4 H Plt Count 175 MPV 10.9 H Neut # Not Reportable Lymph # Not Reportable [place] # Not Reportable Eos # Not Reportable Baso # Not Reportable Absolute Nucleated RBC Not Reportable Total Counted 100 Band Neuts % (Manual) 2 Metamyelocytes % 2 H Nucleated RBC % Not Reportable Neutrophils # (Manual) 15.2 H Lymphocytes # (Manual) 1.4 L Monocytes # (Manual) 3.0 H Eosinophils # (Manual) 0.2 Differential Comment MANUAL DIFFERENTIAL Manual Slide Review Indicated Platelet Estimate NORMAL (130-450,000) Platelet Morphology NORMAL APPEARANCE RBC Morph Micro Appear 1+ POLYCHROMASIA Sodium 136 Potassium 3.6 Chloride 97 L Carbon Dioxide 25 Anion Gap 14.0 H BUN 38 H Creatinine 1.4 H Estimated GFR (MDRD) 36 L Glucose 129 H Calcium 9.4 Total Bilirubin 0.7 AST 22 ALT 12 Alkaline Phosphatase 116 Troponin I 0.21 Total Protein 6.4 L Albumin 3.3 Globulin 3.1 Albumin/Globulin Ratio 1.1 Lipase 54 H Blood Type Antibody Screen Crossmatch IS Only 07/14/17 14:05 WBC RBC Hgb Hct MCV MCH MCHC RDW Plt Count MPV Neut # Lymph # [place] # Eos # Baso # Absolute Nucleated RBC Total Counted Band Neuts % (Manual) Metamyelocytes % Nucleated RBC % Neutrophils # (Manual) Lymphocytes # (Manual) Monocytes # (Manual) Eosinophils # (Manual) Differential Comment Manual Slide Review Platelet Estimate Platelet Morphology RBC Morph Micro Appear Sodium Potassium Chloride Carbon Dioxide Anion Gap BUN Creatinine Estimated GFR (MDRD) Glucose Calcium Total Bilirubin AST ALT Alkaline Phosphatase Troponin I Total Protein Albumin Globulin Albumin/Globulin Ratio Lipase Blood Type A POSITIVE Antibody Screen NEGATIVE Crossmatch IS Only See Detail Procedures - General procedure General procedure: She was difficult for IV access, I personally placed a long 22-gauge IV in the right deep brachial vein using real-time ultrasound guidance which cliff well and flushed okay. PD MEDICAL DECISION MAKING - ED course Complexity details: d/w management consultant (Mariana Troy, hospice nurse practitioner, patient has been vacillating about hospice and actually does not have a clear diagnosis at this point because she does not have a tissue diagnosis.) ED course: 81yo woman with what sounds like GI cancer with unclear primary with mets. With ongoing GI bleeding and chest pain and mild trop elevation. Hgb back down and will get 2 units PRBCs. The hospice nurse to come out and talk to her and after long discussion she is being enrolled in hospice and as such we will not perform any advanced interventions on her coronary status. 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 Return if you have uncontrolled symptoms or other acute emergency needs.
[2017-07-14 13:52] LABS: BASOPHILS % (AUTO) 0.4 %; EOSINOPHILS % (AUTO) 0.2 %; HCT - HEMATOCRIT 23.3 % (37.0-47.0); HGB - HEMOGLOBIN 7.4 g/dL (12.0-16.0); LYMPHOCYTES % (AUTO) 4.5 %; MEAN CORPUSCULAR HEMOGLOBIN 28.4 pg (27.0-31.0); MEAN CORPUSCULAR HGB CONC 31.8 g/dL (32.0-36.0); MEAN CORPUSCULAR VOLUME 89.2 fL (81.0-99.0); MEAN PLATELET VOLUME 10.9 fL (7.9-10.8); MONOCYTES % (AUTO) 28.1 %; NEUTROPHILS % (AUTO) 66.8 %; RED BLOOD COUNT 2.61 10^6/uL (4.20-5.40); RED CELL DISTRIBUTION WIDTH 19.4 % (12.0-15.0); UNCORRECTED WHITE BLOOD COUNT 20.2 x10^3/uL; WHITE BLOOD COUNT 20.2 x10^3/uL (4.8-10.8)
[2017-07-14 14:00] LABS: ALBUMIN/GLOBULIN RATIO 1.1 (1.0-2.2); BILIRUBIN,TOTAL 0.7 mg/dL (0.2-1.0); CALCIUM 9.4 mg/dL (8.5-10.3); CREATININE 1.4 mg/dL (0.4-1.0); POTASSIUM 3.6 mmol/L (3.5-5.0); TOTAL PROTEIN 6.4 g/dL (6.7-8.2)
[2017-07-14] MEDS: SODIUM CHLORIDE 0.9% 1,000 ML IV ONE (14:16)
[2017-07-14 14:21] LABS: BAND NEUTROPHILS % (MANUAL) 2 %; EOSINOPHILS % (MANUAL) 1 %; LYMPHOCYTES % (MANUAL) 7 %; NEUTROPHILS % (MANUAL) 73 %; TOTAL CELLS COUNTED 100
[2017-07-14 14:22] LABS: PLATELET ESTIMATE, MANUAL NORMAL (130-450,000) (NORMAL); PLATELET MORPHOLOGY NORMAL APPEARANCE (NORMAL)
[2017-07-14 14:23] LABS: NP AUTO DIFFERENTIAL? YES; NP MAN DIFFERENTIAL? NO
--- NOTE | 2017-07-14 17:46 | CONSULTATION NOTE ---
Palliative Care Follow Up - Referral Referring Provider: Dr. 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 She was sent to the emergency room for which she now is going to be receiving 2 units of packed red blood cells. Again she has had ongoing GI bleeding, that has an ill-defined diagnosis. She has had multiple hospitalizations and ED visits with a variety of partial workups, but has had no definitive biopsy, though malignancy is definitely most likely underlying cause. Her recurrent anemia has been attributed most likely to bleeding from the small bowel from an ill-defined mass. She has experienced ongoing intermittent nausea, GI bleeding, and intermittent pain. She is also has cardiac issues including presenting with NSTEMI in March, so she does get intermittent chest pain particularly when her counts get low. I had met with her after her last ED visit, she remains somewhat ambivalent that she expressed that she wants "comfort measures" she continues to access emergency services for her symptom management. In follow-up my last conversation with her primary care provider, was to either further follow-up with a tissue diagnosis, or except hospice with the goal to manage her symptoms at home. Patient does recognize me remember from our last visit, she does seem to have a little bit more confusion than previously. The by the end of our conversation she was quite clear and articulate, she has been receiving her infusion as well as fluids. She reports she has been trying to call me, to further explore and access hospice support. She is very insistent, and redoing her DNAR in getting copies for her family. Social History - Living Situation Living arrangement: At home Living Situation: With family Support System: Patient lives at home in a small apartment, with her daughter Yolis who is 56, she is disabled from . 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 I have spoken to her directly, and our conversation she was actually quite worried about knowing what to do. Patient does have a granddaughter Mayra Grant [phone], from whom she originally had identified as her medical power of contract attorney. Patient does not know if she did get that documents signed or not. Medications/Allergies - Medications Home Medications: Ambulatory Orders Medication Instructions Recorded Confirmed metFORMIN [Glucophage] 1,000 mg PO BIDWM 04/03/13 06/10/17 Omeprazole 20 mg PO BID 07/25/16 07/14/17 Simvastatin 20 mg PO QPM 07/25/16 07/14/17 Levothyroxine Sodium 125 mcg PO DAILY 03/18/17 06/10/17 [Levothyroxine Sodium] Ondansetron Odt [Zofran] 4 mg TL Q6H PRN #14 tablet 06/08/17 07/14/17 Nitroglycerin [Nitrostat] 0.4 mg SL PRN PRN 06/10/17 06/10/17 - Allergies Allergies/Adverse Reactions: Allergies Allergy/AdvReac Type Severity Reaction Status Date / Time Penicillins AdvReac Intermediate Rash Verified 07/14/17 12:28 Palliative Care - POLST Patient has POLST: Yes POLST Status: DNR, Comfort Measures (Redone at visit; copies taken; original with patient) Pain: No pain Tiredness/Fatigue: Severe (7-10) Drowsiness/Sedation: None Nausea: None Depression: Mild (1-3) Anxiety: Comment (anxious about what to do) Dyspnea: Moderate (4-6) Anorexia: Mild (1-3) Sleep: Variable sleep pattern Constipation: Comment (reports bloody stools) Feelings of wellbeing/Perceived Quality of Life: Poor, Worsening Performance Status: Patient reports walker use at home, she reports she needs a new walker that it is nonfunctioning. She is also requesting a commode, she does report increased fatigue and less able to take care of herself. - Palliative Care Discussion: Fairly long and extensive conversation had regarding patient goals of care. Patient does recognize that she is declining. She has not had any further workup, and continues to want to focus on "being comfortable". She does say at this point in time she is ready for hospice, we did review the hospice meant focusing on being comfortable and no further interventions including coming back to the hospital for transfusions and ED visits. She continues to perceive her daughter Yolis is going to be her caregiver, I reviewed with her again my findings from the last visit that Yolis is very nervous about this. We did discuss we would need a short-term goal, which is to get her home and on the hospice team, but would need to start planning for a longer term goal about her very end of life and where she is going to be taking care of and whom might be able to provide support for this. She is very insistent on getting her DNAR done, we did review a new form, we did go ahead and marked comfort measures at this point in time with the goal not to return back to the hospital. She is hopeful to have time to be able to finish getting her affairs in order, and has somewhat unrealistic expectation as far as what her daughter may be able to provide him for support. I did call Mayra Grant [phone], her granddaughter who sees her also as a mother. She is in [place] and very much wants to be involved as much as she can, she is by default the durable DPO A. She is aware of her grandmother's wishes which is I am to be focus on comfort and in no code. We did discuss transitioning over to hospice, the need for some long-term planning, and support for an end-of-life plan. She is in agreement and is aware that hospice will be contacting her tomorrow after the admit. Results - Lab Results Fish Bones: 07/14/17 13:20 07/14/17 13:20 Lab and Imaging Results: Lab Results x24hrs 07/14/17 07/14/17 07/14/17 Range/Units 14:05 13:20 13:20 WBC (4.8-10.8) x10^3/uL RBC (4.20-5.40) 10^6/uL Hgb (12.0-16.0) g/dL Hct (37.0-47.0) % MCV (81.0-99.0) fL MCH (27.0-31.0) pg MCHC (32.0-36.0) g/dL RDW (12.0-15.0) % Plt Count (130-450) 10^3/uL MPV (7.9-10.8) fL Neut # Lymph # [place] # Eos # Baso # Absolute Nucleated RBC Total Counted Band Neuts % (Manual) (0 - 10) % Metamyelocytes % ( - 0) % Nucleated RBC % Neutrophils # (Manual) (1.5-6.6) 10^3/uL Lymphocytes # (Manual) (1.5-3.5) 10^3/uL Monocytes # (Manual) (0.0-1.0) 10^3/uL Eosinophils # (Manual) (0-0.7) 10^3/uL Differential Comment Manual Slide Review Platelet Estimate (NORMAL) Platelet Morphology (NORMAL) RBC Morph Micro Appear (NORMAL) Sodium 136 (135-145) mmol/L Potassium 3.6 (3.5-5.0) mmol/L Chloride 97 L (101-111) mmol/L Carbon Dioxide 25 (21-32) mmol/L Anion Gap 14.0 H (6-13) BUN 38 H (6-20) mg/dL Creatinine 1.4 H (0.4-1.0) mg/dL Estimated GFR (MDRD) 36 L (>89) Glucose 129 H (70-100) mg/dL Calcium 9.4 (8.5-10.3) mg/dL Total Bilirubin 0.7 (0.2-1.0) mg/dL AST 22 (10-42) IU/L ALT 12 (10-60) IU/L Alkaline Phosphatase 116 (42-121) IU/L Troponin I 0.21 (<0.49) ng/mL Total Protein 6.4 L (6.7-8.2) g/dL Albumin 3.3 (3.2-5.5) g/dL Globulin 3.1 (2.1-4.2) g/dL Albumin/Globulin Ratio 1.1 (1.0-2.2) Lipase 54 H (22-51) U/L Blood Type A POSITIVE Antibody Screen NEGATIVE Crossmatch IS Only See Detail 07/14/17 Range/Units 13:20 WBC 20.2 H (4.8-10.8) x10^3/uL RBC 2.61 L (4.20-5.40) 10^6/uL Hgb 7.4 L (12.0-16.0) g/dL Hct 23.3 L (37.0-47.0) % MCV 89.2 (81.0-99.0) fL MCH 28.4 (27.0-31.0) pg MCHC 31.8 L (32.0-36.0) g/dL RDW 19.4 H (12.0-15.0) % Plt Count 175 (130-450) 10^3/uL MPV 10.9 H (7.9-10.8) fL Neut # Not Reportable Lymph # Not Reportable [place] # Not Reportable Eos # Not Reportable Baso # Not Reportable Absolute Nucleated RBC Not Reportable Total Counted 100 Band Neuts % (Manual) 2 (0 - 10) % Metamyelocytes % 2 H ( - 0) % Nucleated RBC % Not Reportable Neutrophils # (Manual) 15.2 H (1.5-6.6) 10^3/uL Lymphocytes # (Manual) 1.4 L (1.5-3.5) 10^3/uL Monocytes # (Manual) 3.0 H (0.0-1.0) 10^3/uL Eosinophils # (Manual) 0.2 (0-0.7) 10^3/uL Differential Comment MANUAL DIFFERENTIAL Manual Slide Review Indicated Platelet Estimate NORMAL (130-450,000) (NORMAL) Platelet Morphology NORMAL APPEARANCE (NORMAL) RBC Morph Micro Appear 1+ POLYCHROMASIA (NORMAL) Sodium (135-145) mmol/L Potassium (3.5-5.0) mmol/L Chloride (101-111) mmol/L Carbon Dioxide (21-32) mmol/L Anion Gap (6-13) BUN (6-20) mg/dL Creatinine (0.4-1.0) mg/dL Estimated GFR (MDRD) (>89) Glucose (70-100) mg/dL Calcium (8.5-10.3) mg/dL Total Bilirubin (0.2-1.0) mg/dL AST (10-42) IU/L ALT (10-60) IU/L Alkaline Phosphatase (42-121) IU/L Troponin I (<0.49) ng/mL Total Protein (6.7-8.2) g/dL Albumin (3.2-5.5) g/dL Globulin (2.1-4.2) g/dL Albumin/Globulin Ratio (1.0-2.2) Lipase (22-51) U/L Blood Type Antibody Screen Crossmatch IS Only Impression and Recommendations - Palliative Care Impression: This is an 81-year-old feisty woman, who does have serious illness, ongoing functional decline, concern regarding cognitive decline as well. She does present most likely with malignancy though not biopsy defined, high symptom burden, underlying cardiac issues, with recurrent anemia with the most likely source of bleeding in her small bowel. She does at this point in time want to transition to comfort measures only, and is in agreement for hospice admit. The goal of the ED stay, will to receive 2 units of packed red blood cells and fluids to allow time for hospice team provide support and establish an appropriate end of life plan. Recommendations/Counseling Done: 1. Advanced care planning. POLST completed to reflect patient's new goals of care, which adds to focus on comfort measures. She is hopeful to have a at home, though is able to recognize this may not be possible given the limitations of her daughter. Did speak with Dr. Hernandez, he will send the hospice order, he had spoken to her as well as far as transitioning given her ongoing decline. Follow-up with hospice team, arrangements made for admit tomorrow at her home between 10 and 11 AM. This was communicated with the patient as well as an explanation of hospice services, she is very concerned about finances, and reassured her she has no co-pay with this. Report was shared regarding concerns of patient's about her disabled daughter, finishing her affairs, and follow-up needed with her granddaughter Mayra. 2. Medication adherence. Patient somewhat confused regarding her medications, she reports she has "whole bag of them" and would like some assistance in sorting out what she should and should not be taking. She reports the medications were used for pain and nausea were effective. Would recommend we simplify with the hospice team on admit. Time Spent: 60 minutes with greater than 50% of this done in counseling and coordination of care regarding patient's goals of care, transition to hospice, and anticipatory guidance.
[2017-07-14] MEDS: oxyCOD/ACETAMIN 5 MG/325 MG TABLET PO STA (17:56)
[2017-07-14] MEDS ORDERED: oxyCOD/ACETAMIN 5 MG/325 MG TABLET PO ONE (18:00)
[2017-07-14 21:33] VITALS: BP 120/68
== END 2017-07-14 21:38 | disposition home or self-care (01) ==
LOC: ED 12:18
DX: C77.2 Secondary and unspecified malignant neoplasm of intra-abdominal lymph nodes (principal); C80.1 Malignant (primary) neoplasm, unspecified; K92.2 Gastrointestinal hemorrhage, unspecified; I11.0 Hypertensive heart disease with heart failure; I50.9 Heart failure, unspecified; E78.00 Pure hypercholesterolemia, unspecified; E03.9 Hypothyroidism, unspecified; E11.8 Type 2 diabetes mellitus with unspecified complications; Z79.84 Long term (current) use of oral hypoglycemic drugs
CPT/HCPCS: 36430; 80053; 83690; 84484; 85025; 86850; 86900; 86901; 86920; 93005; 99215; 99285; A9270; P9016

== ENCOUNTER 2017-07-16 17:20 | Outpatient (CLI) | payer MEDICARE, BC | END 2017-07-16 17:21 | disposition EMS.NT | LOC: EMS 17:20 | PROVIDERS: ATTEND Surgery | DX: Z03.89 Encounter for observation for other suspected diseases and conditions ruled out (principal); W07.XXXA Fall from chair, initial encounter; Y92.038 Other place in apartment as the place of occurrence of the external cause ==

== ENCOUNTER 2017-07-17 17:00 | Outpatient (CLI) | payer MEDICARE, BC | END 2017-07-17 17:01 | disposition EMS.NT | LOC: EMS 17:00 | PROVIDERS: ATTEND Surgery | DX: R53.1 Weakness (principal); W07.XXXA Fall from chair, initial encounter; Y92.039 Unspecified place in apartment as the place of occurrence of the external cause ==

== ENCOUNTER 2017-07-21 08:14 | Outpatient (CLI) | payer BC | END 2017-07-21 08:15 | disposition critical access hospital (66) | LOC: EMS 08:14 | PROVIDERS: ATTEND Surgery | DX: R51 Headache (principal); M25.552 Pain in left hip; W01.198A Fall on same level from slipping, tripping and stumbling with subsequent striking against other object, initial encounter; Y92.032 Bedroom in apartment as the place of occurrence of the external cause | CPT/HCPCS: A0425; A0429 ==

== ENCOUNTER 2017-07-21 08:33 | Emergency (ER) | payer BC ==
[2017-07-21] MEDS ORDERED: ACETAMINOPHEN 325 MG TABLET PO STA (08:47)
[2017-07-21] MEDS ORDERED: ACETAMINOPHEN 325 MG TABLET PO ONE (09:21)
--- NOTE | 2017-07-21 09:41 | ED Physician Documentation ---
History of Present Illness - Stated complaint Stated Complaint: FALL - Chief complaint Chief Complaint: Heent - Additonal information Additional information: hx from pt 81 f on hospice for GI cancer is very weak (not new) so freq falls (not new) fell ut of bed today, hiot back of head, also L hip pain, no reported LOC lives with her DD daughter they called hospice service who assured pt and daughter they would immed come to the house to care for pt but they were panickedand called 911 anyway and EMS brought them to the ER hospcie called ahead to advise me and both nurse Camelia and director of engineering Dr Yu were present when pt arrived - they rec tx discomfort, no work up needed , plan is for pt to go to [facility] (or [facility]) as she is now too weak and ill to remain at home with her daughter any longer no reported fever cough NVD pt denies CP, has some abd pain but that is apparently not new has a fentanyl patch and also vicodin Review of Systems Constitutional: denies: Fever Cardiac: denies: Chest pain / pressure Respiratory: denies: Cough GI: reports: Abdominal Pain Musculoskeletal: reports: Joint pain. 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 Derm: Skin cancer surgery - Present Medications Home Medications: Ambulatory Orders Medication Instructions Recorded Confirmed metFORMIN [Glucophage] 500 mg PO BID 04/03/13 07/21/17 Levothyroxine Sodium 125 mcg PO DAILY 03/18/17 07/21/17 [Levothyroxine Sodium] HYDROcod/ACETAM 5/325 [[place] 5/325] 1 tab PO Q6HR 07/21/17 07/21/17 Omeprazole [PriLOSEC] 20 mg PO BID 07/21/17 07/21/17 fentaNYL 12 MCG PATCH [Duragesic 12.5 mcg TD DAILY 07/21/17 07/21/17 12mcg patch] - Allergies Allergies/Adverse Reactions: Allergies Allergy/AdvReac Type Severity Reaction Status Date / Time Penicillins AdvReac Intermediate Rash Verified 07/14/17 12:28 - Social History Does the pt smoke?: No Smoking Status: Never smoker Does the pt drink ETOH?: No Does the pt have substance abuse?: No - Immunizations Immunizations are current?: No Immunizations: TDAP >10years/unknown - POLST Patient has POLST: Yes POLST Status: DNR PD ED PE NORMAL - Vitals Vital signs reviewed: Yes - General General: No: Alert and oriented X 3 (alert confused) - HEENT HEENT: PERRL, Other (hematoma posterior left scalp) - Neck Neck: No bony TTP - Cardiac Cardiac: RRR - Respiratory Respiratory: No respiratory distress, Clear bilaterally - Abdomen Abdomen: Soft, Other (midl diffuse TTP) - Back Back: No spinal TTP - Derm Derm: Other (pale) - Extremities Extremities: Other (both hips full passive ROM s pain, no deformity or shortening or roatation) - Neuro Neuro: Other (awake alert moves all ext) Results - Vitals Vitals: Vital Signs - 24 hr 07/21/17 07/21/17 07/21/17 08:36 09:42 13:26 Temperature 36.3 C L 36.4 C L 36.3 C L Heart Rate 107 H 92 102 H Respiratory 18 14 18 Rate Blood Pressure 101/57 L 112/55 L 120/76 O2 Saturation 100 99 99 Oxygen O2 Source Room air PD MEDICAL DECISION MAKING - ED course ED course: pt hospice and comfort care so no imaging conducted as would not operate etc based on results gave pt pain medication hospice staff in ER upon pt arrival and able to arrange for pt to go to [facility] as she is no longer safe at home due to weakness and falls Departure - Departure Disposition: 01 Home, Self Care Clinical Impression: Hospice care patient Head injury Qualifiers: Encounter type: initial encounter Qualified Code(s): S09.90XA - Unspecified injury of head, initial encounter Fall Qualifiers: Encounter type: initial encounter Qualified Code(s): W19.XXXA - Unspecified fall, initial encounter Condition: Good Instructions: ED Head Injury Closed
[2017-07-21] MEDS ORDERED: oxyCODONE 5 MG TABLET PO STA (13:07)
[2017-07-21 13:26] VITALS: BP 120/76
[2017-07-21] MEDS ORDERED: HYDROcod/ACETAM 5/325 MG TABLET PO STA (13:41)
[2017-07-21] MEDS ORDERED: HYDROcod/ACETAM 5/325 MG TABLET ONE (13:43)
== END 2017-07-21 16:00 | disposition home or self-care (01) ==
LOC: EDUNIT# → ED 08:33
DX: S09.90XA Unspecified injury of head, initial encounter (principal); W06.XXXA Fall from bed, initial encounter; Y92.009 Unspecified place in unspecified non-institutional (private) residence as the place of occurrence of the external cause; M25.551 Pain in right hip; R53.1 Weakness; I11.0 Hypertensive heart disease with heart failure; I50.9 Heart failure, unspecified; I25.2 Old myocardial infarction; E78.00 Pure hypercholesterolemia, unspecified; E11.9 Type 2 diabetes mellitus without complications; E03.9 Hypothyroidism, unspecified; C26.9 Malignant neoplasm of ill-defined sites within the digestive system; Z79.84 Long term (current) use of oral hypoglycemic drugs; Z91.81 History of falling
CPT/HCPCS: 99283; 99284; A9270

== ENCOUNTER 2017-07-21 16:08 | Outpatient (CLI) | payer BC | END 2017-07-21 16:09 | disposition hospice, inpatient (51) | LOC: EMS 16:08 | PROVIDERS: ATTEND Surgery | DX: S09.90XA Unspecified injury of head, initial encounter (principal); S79.919A Unspecified injury of unspecified hip, initial encounter; S49.90XA Unspecified injury of shoulder and upper arm, unspecified arm, initial encounter; R11.0 Nausea; R53.1 Weakness; W19.XXXA Unspecified fall, initial encounter | CPT/HCPCS: A0425; A0428 ==